=== PATIENT | male | born 1960 | race Caucasian/White ===

== ENCOUNTER → 2018-02-13 12:47 | Outpatient (REF) | payer MEDICAID, SELFPAY ==
[2018-02-13 19:01] LABS: Anion Gap 11.4 mmol/L (3-11); BUN 12 mg/dL (7-18); CO2 26.6 mmol/L (21.0-32.0); CREATININE 0.91 mg/dL (0.70-1.30); Chloride 100 mmol/L (98-107); Glucose 104 mg/dL (70-100); Potassium 4.9 mmol/L (3.5-5.1); Sodium 138 mmol/L (136-145)
== END ==
LOC: NCHCN 12:47
PROVIDERS: PCP Family Medicine; Visit Provider Family Medicine
DX: I10 Essential (primary) hypertension (principal)
CPT/HCPCS: 80048

== ENCOUNTER 2018-03-13 08:52 | Day surgery (SDC) | payer MEDICAID, SELFPAY ==
--- NOTE | 2018-03-12 14:51 | POEE_ITS ---
History of Present Illness Chief Complaint: Progressive decreased vision, left eye Narrative: The patient is a 57-year-old gentleman who suffered a macula off retinal detachment in 2017. He underwent retinal detachment repair with vitrectomy and scleral buckle. He has now developed a dense mature nuclear cataract of the left eye with posterior subcapsular cataract as well. Best corrected vision in the left eye measures 20/200 in the presence of a dense mature nuclear and posterior subcapsular cataract with poor red reflex and poorly dilating pupil. The option of cataract surgery was offered to the patient and he wished to proceed, understanding that postoperative visual acuity will be limited by the presence of his pre-existing retinal disease. NOTE: The Chief Complaint, HPI, Past Medical History, Past Surgical History, Family History, Social History, Medications, and complete Ophthalmic Exam with detailed Assessment and Plan have already been documented in the patient's outpatient ophthalmic record and/or in the Primary Care Provider's pre-op history and physical, and are not covered again in detail here. 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) Abdominal pain, left upper quadrant Allergic rhinitis Gout History of depression Hypertension Hypertriglyceridemia Lactose intolerance Obesity Tubular adenoma of colon Social History Smoking/Tobacco Use Status: Never Surgical History Colonoscopy - MAC (05/30/17) Meds Home Medications Medication Instructions Recorded Confirmed Type omeprazole 20 mg PO DAILY PRN tab-cap 07/08/14 03/10/18 History ibuprofen 600 mg PO DIRECTED PRN 03/24/15 03/10/18 History amlodipine 5 mg PO DAILY tab-cap 05/02/17 03/09/18 History albuterol sulfate 2 puff INHALATION Q4H PRN PRN 03/09/18 03/09/18 History indomethacin 50 mg PO TID PRN 03/09/18 03/09/18 History Allergies Allergy/AdvReac Type Severity Reaction Status Date / Time lisinopril AdvReac Mild cough Unverified 05/30/17 07:20 Exam OCULAR EXAM:: Visual acuity at distance: Best corrected vision is 20/20 right eye, 20/200 left eye. Pupils: Pupils equal, round, and reactive without afferent pupillary defect IOP: 15 OD, 14 OS Extraocular Motility: Normal Pertinent Slit Lamp Findings: Significant for 2+ nuclear cataract OD. In the left eye, pupil dilates only to 4 mm. Dense 3++ yellow-brown brunescent cataract with 1+ posterior subcapsular cataract. Red reflex is poor. Dilated Funduscopic Examination: Disc cupping is 0.3 in the right eye with normal vessels, macula, peripheral retina and vitreous. There is very poor view of the fundus in the left eye secondary to dense cataract. BRIGHTNESS ACUITY TESTING (BAT):: Off left eye 20/200 Low: 20/200 Medium: 20/200 High: 20/200 Assessment and Plan (1) Pupillary miosis: Current visit: No Status: Acute Assessment: Poorly dilating pupil, left eye, likely secondary to previous surgery Plan: Pupillary dilation and iris stabilization with malyugin ring (2) Posterior subcapsular age-related cataract of left eye: Current visit: No Status: Acute Assessment: Visually significant cataract, left eye. Plan: Cataract extraction with intraocular lens implantation, left eye (3) Nuclear sclerotic cataract of left eye: Current visit: No Status: Acute Assessment: Visually significant cataract, left eye. Plan: Cataract extraction with intraocular lens implantation, left eye (4) Mature cataract: Current visit: No Status: Acute Assessment: Visually significant cataract, left eye. Plan: Cataract extraction with intraocular lens implantation, left eye (5) History of detached retina repair: Current visit: No Status: Acute Note: NOTE:: The details of the planned surgery, including the risks, indications, limitations,expectations,outcome and possible complications were explained to the patient. The patient understands the complications including, but not limited to: infection, hemorrhage, posterior dislocation of the lens or nuclear fragments which may require the intervention of a vitreoretinal surgeon, possible loss of the eye, or from anesthetic complications. The patient has been made aware of the option of not having surgery, that vision following surgery may not be equal to that prior to surgery, and that the planned surgery may not achieve the intended results. Following this discussion, which the patient appeared to understand, the patient wishes to proceed with cataract surgery with lens implantation of the affected eye to improve and maximize vision.
[2018-03-13 10:01] VITALS: BP 123/88; PULSE 106; RESP 18; TEMP 37.3; O2SAT 94
[2018-03-13] MEDS: Lidocaine 2% Jelly 6 ML SYR (12:02)
[2018-03-13] MEDS: Lidocaine 1% Pres-Free 5 ML VIAL (12:12)
[2018-03-13] MEDS: Balanced Salt Soln.-PLUS 500 ML BAG ×2 (12:12→12:50)
[2018-03-13] MEDS: Trypan Blue 0.06% 0.5 ML SYR (12:12)
[2018-03-13] MEDS: Povidone-Iodine Ophth 30 ML BTL (13:14)
--- NOTE | 2018-03-13 13:19 | W.PM.DSUDISC ---
Discharge Plan Discharge Details Reason For Visit: CATARACT OS Attending Provider: Junior Hubbard Primary Care Provider: Sadiq Wilcox Home Meds and New Rx's Prescriptions: No Action omeprazole 20 MG capsule,delayed release(DR/EC) 20 mg PO DAILY PRNRF: 0 amlodipine 5 MG tablet 5 mg PO DAILY RF: 0 ibuprofen 200 MG capsule 600 mg PO DIRECTED PRNRF: 0 indomethacin 50 mg Capsule 50 mg PO TID PRNRF: 0 albuterol sulfate 90 mcg/actuation Hfa Aerosol Inhaler 2 puff INHALATION Q4H PRN PRNRF: 0 Discharge Instructions Stand Alone Forms: Post-op Topical Cataract, Silvio Mckeon (DSU) DS: Diagnosis Discharge Diagnosis (1) Pupillary miosis: Status: Chronic (2) Posterior subcapsular age-related cataract of left eye: Status: Resolved (3) Nuclear sclerotic cataract of left eye: Status: Resolved (4) Mature cataract: Status: Resolved (5) History of detached retina repair: Status: Chronic
--- NOTE | 2018-03-13 13:21 | ROE_ITS ---
Date of service: 03/13/18 Time of Service: 13:20 Operative Note Date of procedure: 03/13/18 Pre-op diagnosis: Mature cataract with poor red reflex and poorly dilating pupil , left eye Post-op diagnosis: same Procedure: 1. Cataract extraction by phacoemulisification with intraocular lens implantation, left eye, 2. Pupillary dilation and iris stabilization with 7.0 mm Malyugin ring 3. Capsular staining with Vision Blue Surgeon: Junior Hubbard Anesthesia: MAC and local (sub-tenon's anesthetic infiltration) Estimated blood loss (mL): 0 Pathology: none sent Complications: None Patient was transported to: same day Patient's condition: stable Implants: [employer] Tecnis [id number] Indications: Rapidly progressive, dense nuclear and posterior subcapsular cataract in left eye after retinal detachment repair by vitrectomy and scleral buckle Findings: Dense brunescent nuclear cataract with poor red reflex. Poorly dilating pupil. Hyper deep anterior chamber with loose zonules and thin capsule. Densely adherent posterior subcapsular plaque. Procedure Description: CATARACT SURGERY OPERATIVE REPORT PREOPERATIVE DIAGNOSIS: 1. Dense nuclear/posterior subcapsular cataract, left eye 2. Poorly dilating pupil, left eye 3. Poor red reflex, left eye 4. s/p scleral buckle/vitrectomy for macula off retinal detachment , left eye POSTOPERATIVE DIAGNOSIS: Same OPERATION: 1. Cataract extraction using phacoemulsification with posterior chamber intraocular lens implant, left eye. 2. Pupillary dilation and iris stabilization using Malyugin Ring 3. Capsular staining with Vision Blue IOL: IOL Weatherization Administrator/Model: Martin [employer] Martin / CLAUDIA Tecnis [id number] IOL Power: +16.0 diopters IOL Serial Number: [id number] Optic Diameter: 6.0 mm Haptic/Overall Diameter: 13.0 mm PHACO INFO: Antwon Centurion Vision System with OZil and Active Fluidics Cumulative Dispersed Energy (CDE): 35.02 seconds SURGEON: Junior Hubbard MD, EZEKIEL ANESTHESIA: Monitored Anesthesia Care (MAC), with local sub-tenon's anesthetic infiltration COMPLICATIONS: None SPECIMENS: None INDICATIONS FOR PROCEDURE: The patient is a 57-year-old gentleman who in 2017 suffered a macula off retinal detachment in the left eye. He underwent retinal detachment repair with scleral buckle and vitrectomy. He has developed a dense nuclear and posterior subcapsular cataract in the left eye. The option of cataract surgery was offered to the patient, understanding that postoperative visual acuity will be limited by the presence of his pre-existing retinal pathology. PROCEDURE: The correct surgical eye was identified and marked as the left eye and the pupil was dilated in the preoperative area using mydriatics, cycloplegics, and NSAIDS (except in aspirin allergic patients). The dilated pupil size was 4.5 mm. Oral sedation was administered in the form of an Imprimis MKO Melt (midazolam 3mg/ketamine 25mg/ondansetron 2mg). The patient was brought to the operating room where cardiopulmonary monitoring was instituted and surgical time-out was performed, confirming the correct operative eye and IOL power. Topical anesthesia was administered and ophthalmic povidone-iodine 5% was instilled into the conjunctival fornices. Lidocaine gel was applied to the cornea and the thiago-ocular area was prepped with Betadine 10% solution and draped in the usual sterile fashion for intraocular surgery. Steri-strips were used to cover the lashes and lid margins and an adhesive eye drape was placed. Care was taken to isolate the lashes and lid margins under the Steri-strips and adhesive eye drape. A lid speculum was placed between the lids of the operative eye and the Kelin-Keanu operating microscope was maneuvered into position. Talib scissors were then used to make a conjunctival buttonhole approximately 6mm posterior to the limbus in the inferonasal quadrant. Blunt dissection was carried out to expose bare sclera, and a blunt-tipped sub-tenon? s anesthesia cannula was introduced and passed posteriorly along the globe where non-preserved plain lidocaine was injected into posterior sub-Tenon?s space. There was no interference from the scleral buckle. A sideport knife was used to make a paracentesis port at the 12:00 position and then air was injected into the anterior chamber, followed by Vision Blue, which was painted over the lens capsule and then irrigated out with balanced salt solution. The anterior chamber was then filled with Healon GV. Shashi scissors were used to make a conjunctival peritomy at the 2 o'clock position and hemostasis was obtained using bipolar cautery. A 2.4mm keratome knife was used to create a half-thickness groove 1 mm posterior to the limbus and then to construct a three -plane sclerocorneal tunnel extending 1.5mm into clear cornea at the 2:00 position, with some difficulty due to low scleral rigidity. A 7.0 mm Malyugin Ring was then inserted into the pupillary space and engaged with the Kuglen hook. A flap was raised on the anterior capsule and capsulorhexis forceps were used to complete a continuous curvilinear capsulorhexis of 5.0. The capsule was noted to be extremely thin with loose zonules and the anterior chamber was very deep.. Balanced salt solution was then used to perform cortical cleaving hydrodissection and nuclear hydrodelineation until the lens could be freely rotated within the capsular bag. The lens nucleus was then disassembled and removed within the capsular bag and iris plane using phacoemulsification. Nucleus splitters were used to help and cracking the dense nucleus, and frequent additional viscoelastic was used to protect the corneal endothelium. Residual cortical material was removed using the 45-degree angled silicone I/A tip with 0.3mm port. The posterior capsule was carefully polished to remove as much residual lens epithelial cells as safely possible. There was a significant amount of densely adherent posterior capsular plaque which could not be safely removed despite extensive polishing and vacuuming. The capsular bag was then inflated and the anterior chamber deepened with viscoelastic. The lens implant described above was inserted into the capsular bag using the CLAUDIA [place] Injector. A Kuglen hook was used to dial the IOL into position. The Malyugin Ring was removed in the reverse order of its insertion. Residual viscoelastic was then removed first from posterior to the IOL, then from the anterior chamber using the I/A handpiece. The lens implant was noted to center nicely within the capsular bag. The incisions were stromally hydrated , and the anterior chamber was reformed using BSS. Then 0.4cc of moxifloxacin 1.5mg/ml were injected into the capsular bag and anterior chamber. The incisions were checked with a Weck spear and found to be secure. The conjunctiva was closed over the scleral tunnel incision using cautery forceps. Several drops of ophthalmic povidone-iodine 5% were then applied to the eye followed by two drops of Imprimis combination moxifloxacin/dexamethasone solution. The drapes were removed and a clear plastic protective eye shield was placed over the eye. The patient was then returned to [facility] in stable condition.
[2018-03-13 13:38] VITALS: BP 136/97; PULSE 109; RESP 18; TEMP 37.4; O2SAT 95
== END 2018-03-13 14:00 | disposition home or self-care (01) ==
LOC: SUR 08:52
PROVIDERS: PCP Family Medicine; Visit Provider Ophthalmology
PROC: (CPT 66982; principal; 2018-03-13 13:30)
DX: H25.12 Age-related nuclear cataract, left eye (principal); H25.042 Posterior subcapsular polar age-related cataract, left eye; H35.89 Other specified retinal disorders; H57.09 Other anomalies of pupillary function; H27.8 Other specified disorders of lens; Z98.890 Other specified postprocedural states; I10 Essential (primary) hypertension; K21.9 Gastro-esophageal reflux disease without esophagitis
CPT/HCPCS: 66982; V2632

== ENCOUNTER 2018-11-02 08:02 | Emergency (ER) | payer MEDICAID, SELFPAY ==
[2018-11-02 08:12] VITALS: BP 166/102; PULSE 99; RESP 20; TEMP 36.7; O2SAT 96
--- NOTE | 2018-11-02 08:36 | W.ED.GENAD ---
Discharge Plan Disposition Patient Disposition: HOME Condition: Stable Discharge Details Chief Complaint: Orthopedic Clinical Impression: Left knee sprain, Left knee pain Primary Care Provider: Sadiq Wilcox ED Provider: Anne-Marie Hunt Home Meds and New Rx's Prescriptions: Continued omeprazole 20 MG capsule,delayed release(DR/EC) 20 mg PO DAILY PRNRF: 0 amlodipine 5 MG tablet 5 mg PO DAILY RF: 0 ibuprofen 200 MG capsule 600 mg PO DIRECTED PRNRF: 0 indomethacin 50 mg Capsule 50 mg PO TID PRNRF: 0 albuterol sulfate 90 mcg/actuation Hfa Aerosol Inhaler 2 puff INHALATION Q4H PRN PRNRF: 0 Discharge Instructions Instructions: Knee Sprain (ED), Knee Pain (ED) Additional Instructions: Rest, ice, elevate left knee as much as possible. Alternate Tylenol and Motrin as needed and directed for pain. Wear an Deejay wrap as much as possible to help with compression. Follow-up with your primary care doctor in 1 week for reevaluation and for referral to orthopedics if your symptoms do not improve or worsen. Return to the emergency department with any worsening or new concerning symptoms. Referrals: Ozzy Montoya MD [ [facility] STAFF PHYSICIAN] - Discharge Data Discharge Physician: Anne-Marie Hunt Medical Decision Making 58-year-old male who presents with left anterior medial knee pain for the past 2 weeks after carrying heavy bags upstairs. Afebrile. Patient appears nontoxic. No signs of infection noted to knee. Pain with valgus stress with very minimal edema anterior medial left knee. No other ligamentous instability. Neurovascular intact. No deformity. No calf tenderness. Discussed with patient that the differential diagnosis includes knee sprain, strain, arthritis, effusion. As there is no direct blunt trauma or fall, doubt fracture. Patient was offered x-ray but declines. Will place an Deejay wrap. Patient declines crutches. He is instructed to rest, ice, elevate and wear Deejay wrap to help with compression. He states he has a wheelchair at home. He is also encouraged to obtain a cane from a medical supply store which may help with ambulation and rest. He is instructed to follow-up with his primary care doctor for reevaluation and for referral to orthopedics if symptoms do not improve or worsen. HPI General Mode of arrival: wheelchair. Date/Time Provider Initiated Documentation: 11/02/18 08:20. Limitations to Documentation: no limitations. Information obtained by: patient. HPI Narrative: Patient is a 58-year-old male who presents to the ED with a complaint of left knee pain for the past 2 weeks. 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 Patient states the pain feels like a dull ache and pressure when he is laying down and with prolonged standing. He has been applying ice, heat and taking ibuprofen for pain. He denies any calf pain or fever. Related Data Home Medications Medication Instructions Recorded Confirmed omeprazole 20 mg PO DAILY PRN tab-cap 07/08/14 11/02/18 ibuprofen 600 mg PO DIRECTED PRN 03/24/15 11/02/18 amlodipine 5 mg PO DAILY tab-cap 05/02/17 11/02/18 albuterol sulfate 2 puff INHALATION Q4H PRN PRN 03/09/18 11/02/18 indomethacin 50 mg PO TID PRN 03/09/18 11/02/18 Allergies Allergy/AdvReac Type Severity Reaction Status Date / Time lisinopril AdvReac Mild cough Verified 11/02/18 08:15 General Stated Complaint: Orthopedic MAX: 3 Review of Systems Review of Systems All systems reviewed & are unremarkable except as noted in HPI and below Constitutional Reports as per HPI, Denies chills and Denies fever(s) Eyes Denies blurry vision ENT Denies dizziness, Denies sore throat and Denies throat swelling Cardiovascular Denies chest pain and Denies dyspnea Respiratory Denies cough and Denies dyspnea Gastrointestinal Denies abdominal pain, Denies diarrhea and Denies vomiting Genitourinary Denies hematuria and Denies dysuria Musculoskeletal Denies back pain and Denies numbness Integumentary/Breasts Denies lesions and Denies rash Neurologic Denies dizziness, Denies focal weakness and Denies numbness Allergic/Immunologic Denies throat swelling FORMERLY [facility], 1928–1983 Medical History 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) Abdominal pain, left upper quadrant Allergic rhinitis Gout History of depression Hypertension Hypertriglyceridemia Lactose intolerance Obesity Tubular adenoma of colon Surgical History Colonoscopy - MAC (05/30/17) Social History Smoking/Tobacco Use Status: Never Alcohol Intake: current Alcohol Intake frequency: a few times a week Drug use: Never Substance use type: does not use Do you feel safe at home: Yes Do you feel safe in your relationship?: Yes Exam Const General: cooperative, healthy appearing and no acute distress HENMT Head: normal to inspection Mouth: oral mucosae normal Eyes General: appearance normal, both eyes and all related structures Neck Neck: normal visual inspection Resp Effort & Inspection: normal respiratory effort and able to speak in complete sentences Cardio Rate: regular rate Skin General skin exam: no rashes or lesions noted Neuro General: alert, awake and oriented x3 Motor: muscle tone normal throughout Extrem General: no calf tenderness Other: Pain in left anterior medial knee with valgus stress. Negative anterior/posterior drawer test. Negative Tim's test. No pain with varus stress. No ligamentous instability. Very minimal edema noted to left anterior medial knee. No erythema, ecchymosis or open wounds. Left DP/PT pulses intact. Psych Appearance: grossly normal Affect: normal affect Course Vital Signs Temperature 98.1 F 11/02/18 08:12 Pulse 99 H 11/02/18 08:12 Respiratory Rate 20 11/02/18 08:12 Blood Pressure 166/102 H 11/02/18 08:12 Pulse Oximetry 96 11/02/18 08:12 Temperature 98.1 F 11/02/18 08:12 Temperature Source Temporal Artery Scan 11/02/18 08:12 Pulse 99 H 11/02/18 08:12 Respiratory Rate 20 11/02/18 08:12 Respiratory Effort Non-Labored 11/02/18 08:12 Blood Pressure 166/102 H 11/02/18 08:12 Pulse Oximetry 96 11/02/18 08:12 Oxygen Delivery Method Room Air 11/02/18 08:12 Oxygen Flow Rate 0 11/02/18 08:12 Pain Level 6 11/02/18 08:16
== END 2018-11-02 08:46 | disposition home or self-care (01) ==
PROVIDERS: Emergency Provider Physician Assistant; PCP Family Medicine
DX: S83.92XA Sprain of unspecified site of left knee, initial encounter (principal); X50.0XXA Overexertion from strenuous movement or load, initial encounter
CPT/HCPCS: 99282

== ENCOUNTER 2018-11-14 14:42 | Outpatient (CLI) | payer MEDICAID, SELFPAY ==
--- NOTE | 2018-11-14 13:20 | DI.RAD_ITS ---
SYMPTOMS/DIAGNOSIS: LT KNEE PAIN, M25.562 LEFT KNEE: The femoral tibial joint spaces are well maintained. There is mild spurring at the articular aspect of the patella. No joint effusion is seen. IMPRESSION: Mild degenerative changes at the patella.
== END 2018-11-14 15:02 ==
PROVIDERS: PCP Family Medicine; Visit Provider Family Medicine
DX: M25.562 Pain in left knee (principal); M17.12 Unilateral primary osteoarthritis, left knee
CPT/HCPCS: 73562

== ENCOUNTER 2018-11-27 11:56 | Emergency (ER) | payer MEDICAID, SELFPAY ==
[2018-11-27 12:10] VITALS: BP 126/99; PULSE 95; RESP 18; TEMP 36.6; O2SAT 97
[2018-11-27] MEDS: Acetaminophen 325 MG TAB 650 MG PO (13:07)
--- NOTE | 2018-11-27 14:44 | DI.RAD_ITS ---
SYMPTOM/DIAGNOSIS; MEDIAL KNEE PAIN LEFT KNEE: Four views. No acute fracture, dislocation, lytic or sclerotic lesion is seen. Small spurs are seen at the posterior patella. The soft tissues are unremarkable. IMPRESSION: Minimal degenerative changes in the left knee. No acute abnormality.
--- NOTE | 2018-11-27 16:13 | W.ED.GENAD ---
Discharge Plan Disposition Patient Disposition: HOME Condition: Stable Discharge Details Chief Complaint: Orthopedic Clinical Impression: Sprain of medial collateral ligament of left knee Primary Care Provider: Sadiq Wilcox ED Provider: Cristobal Murphy Home Meds and New Rx's Prescriptions: Continued omeprazole 20 MG capsule,delayed release(DR/EC) 20 mg PO PRN PRNRF: 0 amlodipine 5 MG tablet 5 mg PO DAILY RF: 0 albuterol sulfate 90 mcg/actuation Hfa Aerosol Inhaler 2 puff INHALATION Q4H PRN PRNRF: 0 Discharge Instructions Instructions: Knee Sprain (ED), RICE Therapy (ED) Additional Instructions: He may continue to apply ice to your knee and slowly advance activity as tolerated. If need be you may remove the knee brace during sleep but during any activity or weightbearing you should keep this in place. Please keep your appointment with your primary care provider as arranged and feel free to follow-up with orthopedic office for reassessment and further evaluation. Return to the emergency department for any fever, redness to the knee, significant swelling, or inability to move the knee. Referrals: Ozzy Montoya MD [ [facility] STAFF PHYSICIAN] - (Given that you have been having symptoms for 3 weeks you may call the orthopedic office for arrangement of follow-up appointment with specialist if need) Sadiq Wilcox [Primary Care Provider] - 12/04/18 (Keep your appointment as scheduled) Discharge Data Discharge Date/Time-TO BE ENTERED AT DEPARTURE: 11/27/18 16:33 Medical Decision Making Patient coming into the emergency department via EMS for continued left knee pain. Patient states that he injured his knee 3 weeks ago when going up stairs and was seen in the emergency department and informed he had a knee sprain. He was encouraged to use Deejay wraps which she is intermittently done but due to the pressure on the back of the leg from the Deejay wrap patient has remove them. He states that once he rests his knee does fine but then as soon as he gets up and resumes activity it begins to hurt again. Patient is very aware that his weight is a probable factor in this but states that he cannot continue to have knee discomfort in this manner. Patient denies any new or worsening symptoms but more states concern over continued symptoms. Physical exam shows tenderness with valgus stress testing, no laxity, significant tenderness to palpation of the medial joint line and otherwise diffuse tenderness to the medial soft tissue of the knee. Patient has no tibial tenderness, no femur tenderness, patient can slowly flex and extend knee. Knee is not reddened or erythematous, not hot, and given movement of the joint I doubt any infectious nature to this but more suspect medial ligament sprain/tear and given body habitus has been slow to heal. Plan to do radiological imaging to rule out any acute changes. Pending results patient given acetaminophen Based upon my review of radiological imaging I see no acute changes or no emergent findings. Patient was placed in a extra-large hinged knee brace which barely fits him but after this was placed patient was able to walk through the emergency department greater than 10 steps and states significant improvement of stability and pain while using this. Patient was able to ambulate without any assistive devices and had stable gait.. Patient does state that he has a follow-up appoint with his primary care provider in approximately 1 week which I feel is appropriate but patient was also given phone number for follow-up with orthopedic office given concern for medial ligament injury. Also of consideration is possible meniscus injury. After discussion of diagnosis and plan of care patient has no further needs, questions, or concerns and states clear understanding to return to the emergency department for any worsening symptoms. HPI General Mode of arrival: EMS. Date/Time Provider Initiated Documentation: 11/27/18 12:19. Limitations to Documentation: no limitations. Information obtained by: patient and RN notes reviewed. History of Present Illness 58 year old M presents to the emergency department with the chief complaint of left knee pain, described as severe and similar to prior episodes, with intensity rated at 8. Quality is described as aching and sharp, and is localized to the left and lower extremity. Patient started experiencing this week(s) (3) and it has been constant and intermittent. Rest improves symptom(s), Movement worsens symptoms . Patient notes no other symptoms.. Related Data Home Medications Medication Instructions Recorded Confirmed omeprazole 20 mg PO PRN PRN tab-cap 07/08/14 11/02/18 amlodipine 5 mg PO DAILY tab-cap 05/02/17 11/27/18 albuterol sulfate 2 puff INHALATION Q4H PRN PRN 03/09/18 11/02/18 Allergies Allergy/AdvReac Type Severity Reaction Status Date / Time lisinopril AdvReac Mild cough Verified 11/27/18 12:13 General Stated Complaint: Orthopedic MAX: 4 Review of Systems Cardiovascular Denies syncope Musculoskeletal Reports as per HPI, Denies numbness and Denies tingling Integumentary/Breasts Denies rash, Denies sores and Denies wounds Neurologic Denies syncope, Denies numbness and Denies tingling [facility] Medical History 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) Abdominal pain, left upper quadrant Allergic rhinitis Gout History of depression Hypertension Hypertriglyceridemia Lactose intolerance Obesity Tubular adenoma of colon Surgical History Colonoscopy - MAC (05/30/17) Social History Smoking/Tobacco Use Status: Never Alcohol Intake: current Alcohol Intake frequency: a few times a week Drug use: Never Substance use type: does not use Do you feel safe at home: Yes Do you feel safe in your relationship?: Yes Exam Const General: cooperative and no acute distress Orientation: alert, awake and oriented x3 Resp Effort & Inspection: normal respiratory effort and able to speak in complete sentences Cardio Rate: regular rate Rhythm: regular rhythm Extrem Left lower extremity: hip/thigh Details: normal to inspection and normal ROM; no tenderness, knee Details: tenderness Location: of the medial joint line; not of the tibial tuberosity, not of the popliteal fossa and not of the pre-patellar area, abnormal ROM Details: pain with active ROM Details: with extension and with flexion, knee ligament exam normal Details: anterior drawer test normal, posterior drawer test normal and varus stress test normal and knee ligament exam abnormal Details: valgus stress test Details: pain noted; no ecchymosis, no crepitus and no deformity, lower leg Details: no tenderness and ankle Details: normal to inspection, no edema and normal ROM; no tenderness Course Vital Signs Temperature 36.6 C 11/27/18 12:10 Pulse 95 H 11/27/18 12:10 Respiratory Rate 18 11/27/18 12:10 Blood Pressure 126/99 H 11/27/18 12:10 Pulse Oximetry 97 11/27/18 12:10 Temperature 36.6 C 11/27/18 12:10 Temperature Source Temporal Artery Scan 11/27/18 12:10 Pulse 95 H 11/27/18 12:10 Respiratory Rate 18 11/27/18 12:10 Respiratory Effort 11/27/18 12:18 Blood Pressure 126/99 H 11/27/18 12:10 Pulse Oximetry 97 11/27/18 12:10 Oxygen Delivery Method Room Air 11/27/18 12:10 Oxygen Flow Rate 0 11/27/18 12:10 Pain Level 8 11/27/18 13:15
--- NOTE | 2018-11-27 16:40 | DI.VRAD_ITS ---
EXAM: XR Left Knee EXAM DATE/TIME: 11/27/2018 2:45 PM CLINICAL HISTORY: 58 years old, male; Left; Patient HX: Medial knee pain; Additional info: Weight-bearing views TECHNIQUE: Imaging protocol: XR Left knee. Views: 3 views. COMPARISON: CR XR knee LT 3V AP,lat,diego 11/14/2018 1:13 PM FINDINGS: Bones/joints: The joint spaces are stable. There is no evidence of acute fracture. Minimal osteophyte formation in the superior pole of the patella Soft tissues: Normal. IMPRESSION: Minimal degenerative changes Dictated and Authenticated by: Augie James MD. Ordering:VICTOR MANUEL Jain MD
== END 2018-11-27 16:33 | disposition home or self-care (01) ==
PROVIDERS: Emergency Provider Nurse Practitioner Family; PCP Family Medicine
DX: S83.412A Sprain of medial collateral ligament of left knee, initial encounter (principal); X50.9XXA Other and unspecified overexertion or strenuous movements or postures, initial encounter
CPT/HCPCS: 29505; 73562; 99283; 99282; L3650

== ENCOUNTER 2018-12-06 12:56 | Outpatient (REF) | payer MEDICAID, SELFPAY ==
[2018-12-06 19:45] LABS: Hemoglobin A1C 6.8 % (4.5-6.2)
== END 2018-12-06 13:16 ==
LOC: NCHCN 12:56
PROVIDERS: PCP Family Medicine; Visit Provider Family Medicine
DX: R73.9 Hyperglycemia, unspecified (principal)
CPT/HCPCS: 83036

== ENCOUNTER 2019-09-17 10:25 | Outpatient (REF) | payer MEDICAID, SELFPAY ==
[2019-09-17 19:05] LABS: Anion Gap 9.6 mmol/L (3-11); BUN 23 mg/dL (7-18); CO2 26.4 mmol/L (21.0-32.0); CREATININE 0.97 mg/dL (0.70-1.30); Calcium 8.8 mg/dL (8.5-10.1); Chloride 104 mmol/L (98-107); Glucose 117 mg/dL (74-106); Sodium 140 mmol/L (136-145)
== END 2019-09-17 10:45 ==
LOC: NCHCN 10:25
PROVIDERS: PCP Family Medicine; Visit Provider Family Medicine
DX: E11.9 Type 2 diabetes mellitus without complications (principal)
CPT/HCPCS: 80048

== ENCOUNTER 2020-09-25 11:20 | Outpatient (REF) | payer MEDICAID, SELFPAY ==
[2020-09-25 18:34] LABS: Anion Gap 13.3 mmol/L (3-11); BUN 15 mg/dL (7-18); CO2 25.7 mmol/L (21.0-32.0); Calcium 9.9 mg/dL (8.5-10.1); Chloride 99 mmol/L (98-107); Glucose 146 mg/dL (74-106); Potassium 4.9 mmol/L (3.5-5.1); Sodium 138 mmol/L (136-145)
[2020-09-25 18:38] LABS: Hemoglobin A1C 7.4 % (<5.7)
== END 2020-09-25 11:21 | disposition home or self-care (01) ==
LOC: NCHCN 11:20
PROVIDERS: PCP Family Medicine; Visit Provider Family Medicine
DX: E11.9 Type 2 diabetes mellitus without complications (principal); I10 Essential (primary) hypertension
CPT/HCPCS: 80048; 83036

== ENCOUNTER 2021-07-21 20:01 | Outpatient (REF) | payer MEDICAID, SELFPAY ==
[2021-07-21 17:22] LABS: ALT 30 U/L (16-63); AST 16 U/L (15-37); Albumin 4.1 g/dL (3.4-5.0); Alkaline Phosphatase 74 U/L (46-116); Anion Gap 12.5 mmol/L (3-11); BUN 22 mg/dL (7-18); Bilirubin, Total 0.3 mg/dL (0.2-1.0); CO2 23.5 mmol/L (21.0-32.0); CREATININE 1.1 mg/dL (0.70-1.30); Calcium 9.2 mg/dL (8.5-10.1); Chloride 102 mmol/L (98-107); Glucose 110 mg/dL (74-106); Magnesium 1.8 mg/dL (1.8-2.4); Potassium 4.7 mmol/L (3.5-5.1); Sodium 138 mmol/L (136-145); Total Protein 7.7 g/dL (6.4-8.2); Vitamin B12 346 pg/mL (193-986)
[2021-07-22 10:21] LABS: Hepatitis C Ab w Rflx HCV PCR Negative (Negative)
== END 2021-07-21 20:02 | disposition home or self-care (01) ==
LOC: LBN 20:01
PROVIDERS: PCP Family Medicine; Visit Provider Family Medicine
DX: R20.9 Unspecified disturbances of skin sensation (principal); M10.9 Gout, unspecified; E11.9 Type 2 diabetes mellitus without complications; Z11.59 Encounter for screening for other viral diseases
CPT/HCPCS: 80053; 86803; 82607; 83735; 84550

== ENCOUNTER → 2022-01-13 02:14 | Outpatient (CLI) | payer MEDICAID, SELFPAY ==
--- NOTE | 2022-01-13 07:15 | DI.MRI_ITS ---
Exam(s) MR CERVICAL SPINE WO EXAM: MR CERVICAL SPINE WO CLINICAL HISTORY: burning paraesthesias of head, neck, and arms, Babinski reflex,R29.2,R20.2 TECHNIQUE: Multiplanar multisequence MRI of the cervical spine was performed without intravenous con trast. COMPARISON: No exams were available for comparison FINDINGS: CERVICOMEDULLARY JUNCTION: Intact with no evidence of cerebellar tonsillar ectopia. No obvious abnor mality of the odontoid process. No evidence of Chiari 1 malformation. CERVICAL SPINAL CORD: There is no abnormal signal in the cervical spinal cord and no evidence of foca l cord atrophy nor focal cord swelling. OSSEOUS:There are no cervical fractures evident. No significant osseous lesions in the cervical vert ebrae. Cervical curvature is normal. INDIVIDUAL LEVELS: C2-3: No disc herniation nor central canal stenosis. No foraminal stenosis. No facet arthropathy. C3-4: No disc herniation nor central canal stenosis.No facet arthropathy. No foraminal stenosis. C4-5: No disc herniation nor central canal stenosis.No facet arthropathy. No foraminal stenosis C5-6: Normal disc height. Mild posterior annular bulging. Small central subligamentous disc bulge. This mildly effaces the thecal sac but not the spinal cord at this level and there is no abnormal si gnal in the cord at this level nor elsewhere in the cervical spine. Mild degenerative changes in the facet joints. No prominent Luschka joint osteophytes. No prominent foraminal stenosis. C6-7: Normal disc height and signal. Mild central subligamentous disc bulge. No significant central canal stenosis. Mild degenerative change in the facet joints. No prominent foraminal stenosis. C7-T1: No disc herniation nor central canal stenosis. No facet arthropathy.No foraminal stenosis. IMPRESSION: 1. Mild disc findings at C5-6 and C6-7 levels, as described above. 2. There are no large disc herniations nor prominent central canal stenosis. There is no foraminal s tenosis. 3. Is no prominent facet arthropathy in the cervical spinal canal. No abnormal signal in the cervical cord and no evidence of cervical spinal cord atrophy nor swelling. DATA REPOSITORY:
== END ==
PROVIDERS: PCP Family Medicine; Visit Provider Psychiatry & Neurology Neurology
DX: R20.2 Paresthesia of skin (principal); R29.2 Abnormal reflex; M50.222 Other cervical disc displacement at C5-C6 level; M50.223 Other cervical disc displacement at C6-C7 level
CPT/HCPCS: 72141

== ENCOUNTER 2022-05-31 13:40 | Outpatient (REF) | payer MEDICAID, SELFPAY ==
--- OUTSIDE RECORDS SUMMARY | 2022-05-31 13:42 | XMS_ITS | Encounter Summary ---
:1960 Author Organization [facility] Address [address] [place] [address] Care Team Providers Name Role Phone Pedro Dave MD Primary Care Provider Encounter Details Date Type Department Care Team Description 08/06/2011 Results Only [facility]- [facility] Germaine Coto, DO [phone] [facility] [place], [place] [id number] (Wo rk) Social History Tobacco Use Types Packs/Day Years Used Date Smoking Tobacco: Never Assessed Sex Assigned at Date Recorded Not on file documented as of this encounter Plan of Treatment Not on filedocumented as of this encounter Procedures Procedure Name Priority Date/Time Associated Diagnosis Comme [facility] SURGICAL PATHOLOGY Routine 08/06/2011 0:00 EST Re sults for this procedure are i n the results section. documented in this encounter Results SURGICAL PATHOLOGY (08/06/2011 0:00 EST) Component Value Ref Test Analysis Performed At [facility] Method Time Signature Pathology SURGICAL PATHOLOGY REPORT [facility] Report: Reports generated via electronic interface contain domi martinez data; ALBINO MOORE however they are lacking the format of the original report. Caution should be taken when reading/interpreting unformatte d reports. Name: ? SHAMAR MARTINEZ ? Accession #: ? [id number] ? : ? 1960 (Age: 50) ??M ? Collect Date: ? 08/06/2011 ? Location: ? [facility] ? Receive Date: ? 08/06/2011 ? Provider: GERMAINE COTO DO Copy to: TANIKA ABRAMS MANAGER RESIDENTIAL ? Final Pathologic Diagnosis: A. ?Colon, transverse, polyp, biopsy: 1. ?Polypoid fragment of co lonic mucosa with a prominent lymphoid aggregate. See comment. B. ?Colon, sigmoid, polyp, biopsy: 1. ?Tubular adenoma. Comment: ? Deeper levels of the transverse colon biopsy (A) urrutia ve been examined. Document reviewed and electronically signed by: DEEDEE MAHONEY MD Report ??Date: 08/09/2011 17:17 By the signature above, the attending physician certifies th at he/she has personally conducted a gross and/or microscopic examin ation of the described specimens and rendered or confirmed the above diagnosis. Specimen(s) Received: A. ?Bx transverse colon B. ? Bx sigmoid colon Clinical History: ? Screening colonoscopy Gross Description: ? Received in formalin labelled Shamar Martinez and bx transverse colon are two schneider-white tissue fragmen ts which measure 0.2 x 0.2 x 0.2 cm and 0.2 x 0.2 x 0.2 cm. ??The specimen is entirely submitted as (A). Received in formalin labelled Shamar Martinez and bx sigmoid colon is one irregular schneider-white tissue fragment measuring 0.6 x 0.2 x 0.2 cm, submitted entirely as (B). ??(Dr. Jessica)/[facility] End of Report Specimen (Source) Anatomical Collection Method Collection Time Re ceived Time Location / / Volume Laterality 08/06/2011 08/06/2011 16:3 6 EST Germaine Coto DO PATHOLOGY ORDERABLES Performing Organization Address City/State/ZIP Code Phon e Number [facility] [address] [place] [address] SERVICES [facility] [address] [place] [address] documented in this encounter Visit Diagnoses Not on filedocumented in this encounter Care Teams Jd Edwards Relationship Specialty Start Date End Date Pedro Dave MD PCP - General 10/26/[address] [place] [address] documented as of this encounter
--- OUTSIDE RECORDS SUMMARY | 2022-05-31 13:42 | XMS_ITS | Encounter Summary ---
:1960 Author Organization [facility] Address [address] [place] [address] Care Team Providers Name Role Phone Cornelius Wilcox MD Primary Care Provider Encounter Details Date Type Department Care Team Description 05/30/2017 Results Only [facility]- Nelda Hearn, [address] [place] [address] [address] [place], [place] [phone] (Wo rk) Social History Tobacco Use Types Packs/Day Years Used Date Smoking Tobacco: Never Smokeless Tobacco: Never Sex Assigned at Date Recorded Not on file documented as of this encounter Plan of Treatment Not on filedocumented as of this encounter Procedures Procedure Name Priority Date/Time Associated Diagnosis Comme [facility] SURGICAL PATHOLOGY Routine 05/30/2017 16:10 Resul ts for this EST procedure are i n the results section. documented in this encounter Results SURGICAL PATHOLOGY (05/30/2017 16:10 EST) Component Value Ref Test Analysis Performed At [facility] Method Time Signature Pathology SURGICAL PATHOLOGY REPORT [facility] MEDICAL Report: Reports generated via electronic interface contain origina l data; CENTER however they are lacking the format of the original report. LABORATORY Caution should be taken when reading/interpreting unformat kiara reports. SERVICES Name: ? SHAMAR MARTINEZ ? Accession #: ? [id number] ? : ? 1960 (Age: [age]) ??M ? Collect Date: ? 05/30/2017 ? Location: ? [facility] ? Receive Date: ? 05/30/2017 ? Provider: NELDA GANNON MD Copy to: CORNELIUS WILCOX MD ? Final Pathologic Diagnosis: A. colon, ascending, polyp, biopsy: - Fragments of hyperplastic/inflammatory polyp. - Deeper sections have been examined. B. colon, descending, polyp, BIOPSY: - Fragments of tubular adenoma. Comment: Document reviewed and electronically signed by: MARIA ALEJANDRA HIRSCH MD Report ??Date: 06/01/2017 11:18 By the signature above, the attending physician certifies th at he/she has personally conducted a gross and/or microscopic examin ation of the described specimens and rendered or confirmed the above diagnosis. Specimen(s) Received: A. ??Ascending colon polyp B. ??Descending colon polyp Clinical History: H/O colon polyps Gross Description: A. ?Received in formalin labelled with proper patie nt identification (initials T, R) and ascending colon polyp are two schneider irre gular tissues averaging 0.1 x 0.1 x 0.1 cm. Entirely submitted in A1. B. ?Received in formalin labelled with proper patie nt identification (initials T, R) and descending colon polyp is a schneider irregular tissue, 0.3 x 0.2 x 0.1 cm. Entirely submitted in B1. MOO [place] ([facility]) 05/30/2017 5:12 PM End of Report Specimen Anatomical Collection Method Collection Time Receive d Time (Source) Location / / Volume Laterality 05/30/2017 16:10 05/30/2017 EST 16:10 EST Nelda Gannon MD PATHOLOGY ORDERABLES Performing Organization Address City/State/ZIP Code Phon e Number [facility] [address] [place] [address] SERVICES documented in this encounter Visit Diagnoses Not on filedocumented in this encounter Care Teams Truss Designer Relationship Specialty Start Date End Date Cornelius Wilcox MD PCP - General 02/18/17 documented as of this encounter
--- OUTSIDE RECORDS SUMMARY | 2022-05-31 13:42 | XMS_ITS | Encounter Summary ---
:1960 Author Organization [facility] Address [address] [place] [address] Care Team Providers Name Role Phone Sadiq Wilcox MD Primary Care Provider Encounter Details Date Type Department Care Team Description 02/24/2017 Pre-Procedure [facility] Tee Rios Se retinal Orders Encounter Ophthalmology - [address] MD detachment, left [address] [place] (Primary Dx) [address] [place], [place] [id number] [place] [address] [place], [address] [place] [address] Social History Tobacco Use Types Packs/Day Years Used Date Smoking Tobacco: Never Sex Assigned at Date Recorded Not on file documented as of this encounter Plan of Treatment Not on filedocumented as of this encounter Visit Diagnoses Diagnosis Serous retinal detachment, left - Primar y documented in this encounter Care Teams Radiator Mechanic Relationship Specialty Start Date End Date Sadiq Wilcox MD PCP - General 02/18/17 documented as of this encounter
--- OUTSIDE RECORDS SUMMARY | 2022-05-31 13:42 | XMS_ITS | Encounter Summary ---
:1960 Author Organization [facility] Address [address] [place] [address] Care Team Providers Name Role Phone Sadiq Wilcox MD Primary Care Provider Encounter Details Date Type Department Care Team Description 07/14/2021 Travel Social History Tobacco Use Types Packs/Day Years Used Date Smoking Tobacco: Never Smokeless Tobacco: Never Sex Assigned at Date Recorded Not on file COVID-19 Exposure Response Date Recorded In the last month, have you been in contact with No / Unsure 07/14/2021 10:51 EST someone who was confirmed or suspected to have Coronavirus / COVID-19? documented as of this encounter Functional Status Functional Status Response Date of Assessment Are you deaf or do you have serious difficulty hearing? No 07/14/2021 Because of a physical, mental, or emotional condition, No 12/16/2017 does this person have difficulty doing errands alone such as visiting a doctor's office or shopping? Cognitive Status Response Date of Assessment Because of a physical, mental, or emotional condition, No 12/16/2017 does this person have serious difficulty concentrating, remembering, or making decisions? documented as of this encounter Plan of Treatment Not on filedocumented as of this encounter Visit Diagnoses Not on filedocumented in this encounter Care Teams Electromechanical Technician Relationship Specialty Start Date End Date Sadiq Wilcox MD PCP - General 02/18/17 documented as of this encounter
--- OUTSIDE RECORDS SUMMARY | 2022-05-31 13:42 | XMS_ITS | Encounter Summary ---
:1960 Author Organization [facility] Address [address] [place] [address] Care Team Providers Name Role Phone Sadiq Wilcox MD Primary Care Provider Encounter Details Date Type Department Care Team Description 02/28/2017 [facility] Tee Rios Ser ous retinal Encounter [address] MD detachment, left Services- [facility] [id number] [place], [place] [phone] [place], [address] [place] [address] Social History Tobacco Use Types Packs/Day Years Used Date Smoking Tobacco: Never Sex Assigned at Date Recorded Not on file documented as of this encounter Last Filed Vital Signs Vital Sign Reading Time Taken Comments Blood Pressure 115/73 02/28/2017 1145 EDT Pulse - - Temperature 36.3 ??C (97.3 ??F) 02/28/2017 1200 EDT Respiratory Rate 12 02/28/2017 1145 EDT Oxygen Saturation 99% 02/28/2017 1145 EDT Inhaled Oxygen Concentration - - Weight 158.8 kg (350 lb) 02/22/2017 1022 EDT Height 177.8 cm (5' 10) 02/22/2017 1022 EDT Body Mass Index 50.22 02/22/2017 1022 EDT documented in this encounter Discharge Diagnoses Diagnosis H33.42 Traction detachment of retina, le ft eye-H33.42[ICD-10-CM] H35.22 Other non-diabetic proliferative retinopathy, left eye-H35.22[ICD-10-CM] I10 Essential (primary) hypertension-I10 [ICD-10-CM] E66.01 Morbid (severe) obesity due to ex cess calories-E66.01[ICD-10-CM] Z68.43 Body mass index (BMI) 50-59.9 , a dult-Z68.43[ICD-10-CM] documented in this encounter Discharge Instructions InstructionsTee Rios MD - 02/28/2017 10:51 EDT Please leave the patch on until you see the doctor tomorrow. Please try to keep face down positioning for 45 minutes out of each hour. Sleep with either face down or left side down. documented in this encounter Medications at Time of Discharge Medication Sig Dispensed Refills Start Date End Date amLODIPine (NORVASC) 10 mg Take 5 mg by mouth 0 tabletIndications: daily. hypertension documented as of this encounter Discharge Disposition Disposition Code Departure Means Destination Home or Self Care documented in this encounter Progress Notes Marialuisa Isabel RN - 02/22/2017 1043 EDT Shamar Connell Michelle has been instructed as follows regarding medication administration for the day of the scheduled procedure. Date of Surgery: 02/28/17 Instructions for Taking Medications Day of Surgery Medication Sig Last Dose Hold DOS Take DOS amLODIPine (NORVASC) 10 mg tablet Take 5 mg by mouth daily. Yes documented in this encounter H&P Notes Tee Rios MD - 02/28/2017 0712 EDT The preoperative history and physical which was performed within 30 days of this procedure has been reviewed and the clinically appropriate elements of the physical examination havebeen repeated. There are no changes to the documented history and physical or if so such changes aredocumented below Tee Rios MD 02/28/2017 7:12 Source Note - Tee Rios MD - 02/16/2017 15:00 EDT Chief Complaint Patient presents with ??? Eye Problem mac-off RD left eye. Starting losing vision on 12/23/16. Tried to make appt with eye doctor but couldn't get in. HPI Location: Left eye Pain: 0 - No pain Quality: Blurry Severity: Severe Duration: Weeks Timing: Constant Lasts: Weeks Context: Modifying factors: Associated Signs & Symptoms: Flashes and floaters, but if he doesn't concentrate on them, they go away Visual Fluctuations: None Attestation: The above HPI has been reviewed by the Attending Physician Severe. blurry vision loss in the left eye since the end of December, constant. No improvement. Was diagnosed with a retinal detachment today and referred here for management. Base Eye Exam Visual Acuity (Snellen - Linear) Right Left Dist cc 20/25 -2 20/800 Correction: Glasses Tonometry (Applanation, 16:00) Right Left Pressure 14 14 Pupils APD Right - Left + Neuro/Psych Oriented x3: Yes Mood/Affect: Normal Dilation Both eyes: 1.0% Mydriacyl, 2.5% Phenylephrine @ 16:00 Slit Lamp and Fundus Exam External Exam Right Left External Normal Normal Slit Lamp Exam Right Left Lids/Lashes Normal Normal Conjunctiva/Sclera White and quiet White and quiet Cornea Clear Clear Anterior Chamber Deep and quiet Cell: Occasional Iris Round and reactive Round and reactive Lens Trace Nuclear sclerosis Trace Nuclear sclerosis Vitreous Normal pigment in vitreous Fundus Exam Right Left Disc Tilted disc Normal C/D Ratio 0.1 Macula Normal detached Vessels Normal Periphery Cobblestones star fold at superotemp arcade; HST with rolled edge at 6; retina detached except between 10-11 Please refer to large retinal drawing. IMPRESSION: 1. Retinal detachment, tractional, left 2. 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 Cheney also has untreated hypertension and morbid obesity with a BMI >50. He stopped his bloodpressure meds 6 months ago and has not seen his doctor since. He arrived with an exam note from another crm dynamics developer recommending repair within 7 days. I am recommending scleral-buckle, pars plana vitrectomy membrane peeling, possible gas or oil in theleft eye. We discussed the risks, benefits and alternatives. All questions were answered. He elects to proceed. I did offer him a stat medical evaluation at the [facility] care this evening and then posting as an add-on tomorrow. He is unable to do this because he has no ride and lives 2 hours away. We had a long, detailed conversation with the patient about the situation. I did tell him that thereis absolutely no recommendation that the surgery must be done with 7 days. I explained we typically would want to fix a retinal detachment within 7 days of the INITIAL symptoms of losing the central vision or diagnosis of macula-off status, but once the macula has been off for 2 months, there is no reason to suggest a 7 day window will have any substantial impact on his prognosis at this point. For this reason, I recommended repair, as soon as safely and practically possible. He will seek a medical pre-op evaluation with his doctor tomorrow and we will schedule him soon thereafter. I, Dr. Tee Rios, have performed my own HPI and reviewed the tech's ROS. I have also reviewed the patient's past medical, family, social and surgical history, as well as the patient's medications, allergies, and problem list. I am scribing for Dr. Tee Rios MD while he is personally performing the service. NITA CH (Scribe) documented in this encounter OR Notes OR Surgeon - Tee Rios MD - 02/28/2017 1210 EDT Patient Name: Shamar Martinez Patient Medical Record: [id number] Date of Operation(s)/Procedure(s): 02/28/17 Title of Operation: Pars Plana Vitrectomy, Scleral Buckle, Membrane peel Endolaser, Air-fluid exchange, 14%C3F8, Left Eye Pre-op Diagnosis: 1. Retinal detachment with preretinal tractional membranes and Grade C Proliferative vitreoretinopathy, left eye Post-op Diagnosis: Retinal detachment with preretinal tractional membranes and Grade C Proliferativevitreoretinopathy, left eye Attending Surgeon: Tee Rios MD, MD Prothestic Device/Implant: 1. #40 band 2. #70 sleeve Specimen: None Estimated blood loss: Minimal Anesthesia Type: Monitor Anesthesia Care with Retrobulbar block and General Anesthesia Indications: Shamar Martinez presented for decreased vision in the Right and Left eye. Exam revealed asubtotal retinal detachment with preretinal starfold formation. Risk, benefits and alternatives to retinal detachment repair were discussed including but are not limited to , loss of vision, loss of eye, pain, bleeding, infection, need for additional surgery, retinal detachment, accelerated cataract formation, glaucoma, need for corrective lenses, corneal decompensation, and cosmetic disfigurement. Surgeon's Narrative: Shamar Martinez was met in the preoperative holding area where the Right and Left eye was confirmed tylor the correct eye with both the patient and the consent form. The Right and Left eye was then marked and the patient was brought to the operating room where an official time out was performed. Under the care of the anesthesia team, light IV sedation was administered after which the ophthalmology team gave 0.75% bupivicaine as a block and general anesthesia was induced. The eye was then prepped and draped in the sterile ophthalmic fashion. 360-degree peritomy was made with 0.12 forceps and blunt Talib scissors. The moncada tenotomy scissors were used to dissect to bare sclera in the four oblique quadrants. The four rectus muscles werethen isolated and secured with silk ties. The scleral wall was carefully inspected and found to be free of any external pathology. The band was threaded under the muscles and the sleeve placed in the superonasal quadrant. The buckle was partially tightened to remove slack then 5-0 nylon sutures were passed in each quadrant in a horizontal mattress fashion to secture the band in place at the level of the vitreous base. The knots were rotated posteriorly. The infusion was verified to be running. The buckle was then tightened. A 25G valved trocar was placed 3.5 and 4.0 mm behind the limbus beveled fashion inferotemporally. The infusion was connected to the trocar, the position was verified, and then allowed to run. This procedure was done expeditiously to minimize the time the buckle was tightened and intraocular pressure elevated. Additional trocars were then placed in the superonasal and superotemporal quadrants. The light pipe and vitrector were introduced and the RESDivesquare viewing system used. The retina was noted to be detached for 360 degrees with a large horseshoe tear inferotemporally, a retinal defect inferonasally, and two superotemporal starfolds. Careful core vitrectomy was performed and a posterior vitreous detachment was present. This was verified with aspiration over the optic nerve after kenalog injection. Peripheral vitreous shavingwas performed with scleral depression for 360 degrees. A dionicio-dusted membrane scraper and max-clerical car checker forceps were used to peel the preretinal membrane from the 2 starfolds. The retina was noted to relax nicely following this maneuver. The break were marked with diathermy. The soft-tip was used to carefully drain the subretinal fluid through the most posterior break under fluid infusion and then under air. After the retina had flattened, endolaser was applied to surround the previously marked breaks and areas of starfold. The retina appeared to be flat and no additional breaks were noted with scleral depression. The superonasal cannula was removed and closed with 6-0 plain gut suture. 14% C3F8 and 20% SF6 was then infused to fill the eye. The other 2 cannulas were removed and the sclerotomies were sutured closed with 6-0 plain gut. The buckle was trimmed and subtenons marcaine was given. The sutures were cut from the rectus muscles. The conjunctiva was reapproximated and sutured in place with 6-0 plaingut. Subconjunctival ancef and clindamycin, solumedrol, and tobramycin were given and the eye was noted to be at a physiologic pressure. The speculum was removed and the eye patched closed after instillation of tobradex ointment. The patient was brought to the recovery room in good condition. The patient will follow-up as scheduled tomorrow with the surgical team. documented in this encounter Miscellaneous Notes Anesthesia Post-Eval - Nina Nicolas - 02/28/2017 1147 EDT Anesthesia Post op Note Shamar Becki Martinez [id number] Anesthesia received: General; Vital Signs: Temp: 36.3 ??C (97.3 ??F), Heart Rate: 90 BPM, BP: 117/70, Resp: 8, SpO2: 98 % Vital signs Stable: Yes Consciousness: Awake Patient's participation in evaluation:Able to participate Temperature Status: Normothermic Respiratory Status: Airway patent Supplemental O2: Room air Oxygen Saturation: Appropriate for condition Cardiovascular Status: Appropriate for condition Post-op Hydration: Adequate Nausea / Vomiting: None Pain Control: Adequate Current Pain Score: Numeric Pain Level (Scale 1-10): 0 Post-op Assessment: Tolerated procedure well, No evidence of recall, Patient satisfied with anesthesia Disposition: Home Complications: No apparent anesthetic complications Nina Nicolas 02/28/2017 11:47 documented in this encounter Plan of Treatment Not on filedocumented as of this encounter Procedures Procedure Name Priority Date/Time Associated Diagnosis Comme nts IMPLANT RECORD - SCANNED 03/10/2017 11:07 EDT IMPLANT RECORD - SCANNED 03/03/2017 8:23 EDT ECG REPORT - SCANNED 03/03/2017 8:23 EDT ECG REPORT - SCANNED 02/24/2017 8:39 EDT documented in this encounter Results IMPLANT RECORD - SCANNED (03/10/2017 11:07 EDT) Specimen (Source) Anatomical Collection Method Collection Time Re ceived Time Location / / Volume Laterality 03/10/2017 11:07 EDT Narrative This result has an attachment that is no t available. Scan 2 Crop Production Advisor PROCEDURE/MINOR SURGICAL ORD ERABLES IMPLANT RECORD - SCANNED (03/03/2017 8:23 EDT) Specimen (Source) Anatomical Collection Method Collection Time Re ceived Time Location / / Volume Laterality 03/03/2017 8:23 EDT Narrative This result has an attachment that is no t available. Scan 2 Crop Production Advisor PROCEDURE/MINOR SURGICAL ORD ERABLES ECG REPORT - SCANNED (03/03/2017 8:23 EDT) Specimen (Source) Anatomical Collection Method Collection Time Re ceived Time Location / / Volume Laterality 03/03/2017 8:23 EDT Narrative This result has an attachment that is no t available. Scan 2 Crop Production Advisor PROCEDURE/MINOR SURGICAL ORD ERABLES ECG REPORT - SCANNED (02/24/2017 8:39 EDT) Specimen (Source) Anatomical Collection Method Collection Time Re ceived Time Location / / Volume Laterality 02/24/2017 8:39 EDT Narrative This result has an attachment that is no t available. Scan 2 Crop Production Advisor PROCEDURE/MINOR SURGICAL ORD ERABLES documented in this encounter Visit Diagnoses Diagnosis Serous retinal detachment, left Traction detachment of left retina Traction detachment of retina documented in this encounter Administered Medications Inactive Administered Medications - up to 3 most recent administrations Medication Order MAR Action Action Date Dose Rate Site acetaminophen (TYLENOL) 500 mg tablet 1 dose, Starting on Tue02/28/17 at 1147, Until 02/02 at 1431 acetaminophen (TYLENOL) tablet 1,000 mg Given 02/28/2017 11:48 EDT 1,000 mg 1,000 mg, oral, NOW X1, 1 dose, On Tue02/28/17 at 1215, Routine, Recovery (only) atropine 0.1 mg/mL syringe 0.5 mg 0.5 mg, intravenous, PRN, Starting on Tue02/28/17 at 1 145, Until Tue02/28/17 at 1431, Symptomatic HR < 50, Routine, Recovery (only) cyclopentolate (CYCLOGYL) 1 % ophthalmic Given 02/28/2017 6:56 E DT 1 Drop solution 1 Drop 1 Drop, left eye, PRE-OP Q 5 MINUTES, 3 doses, Starting on Tue02/28/17 at 0622, Until Tue02/28/17 at 0656, Other, vitreoretinal surgery, Routine, Pre-Op DOS Rx Approved Given 02/28/2017 6:51 EDT 1 Drop Given 02/28/2017 6:43 EDT 1 Drop diphenhydrAMINE (BENADRYL) injection 12. 5 mg 12.5 mg, intravenous, PRN, 1 dose, Starting on 02/02 at 1145, Until Tue02/28/17 at 1431, nausea, Routine, Recovery (only) lactated ringers (LR) infusion New Bag 02/28/2017 6:30 EDT 30 mL/hr 30 mL/hr 30 mL/hr, intravenous, CONTINUOUS, Starting on Tue02/28/17 at 0645, Until Tue02/28/17 at 1431, Routine, Pre-Op DOS Rx Approved lactated ringers (LR) infusion at 75 mL/hr, intravenous, CONTINUOUS, St arting on Tue02/28/17 at 1215, Until Tue02/28/17 at 1431, Routine, Recovery (only) naloxone (NARCAN) injection 0.2 mg 0.2 mg, intravenous, PRN, Starting on Tue02/28/17 at 1 145, Until Tue02/28/17 at 1431, Opioid Reversal, Routine, Recovery (only) phenylephrine (MYDFRIN) 2.5 % ophthalmic Given 02/28/2017 6:55 E DT 1 Drop solution 1 Drop 1 Drop, left eye, PRE-OP Q 5 MINUTES, 3 doses, Starting on Tue02/28/17 at 0622, Until Tue02/28/17 at 0655, Irritation, vitreoretinal surgery, Routine, Pre-Op DOS Rx Approved Given 02/28/2017 6:50 EDT 1 Drop Given 02/28/2017 6:44 EDT 1 Drop tropicamide (MYDRIACYL) 1 % ophthalmic solution Given 02/28/2017 6:56 EDT 1 Drop 1 Drop 1 Drop, left eye, PRE-OP Q 5 MINUTES, 3 doses, Starting on Tue02/28/17 at 0622, Until Tue02/28/17 at 0656, vitreoretinal surgery, Routine, Pre-Op DOS Rx Approved Given 02/28/2017 6:50 EDT 1 Drop Given 02/28/2017 6:46 EDT 1 Drop documented in this encounter Historical Medications This list may reflect changes made after this encounter. Medication Sig Dispensed Refills Start Date End Date amLODIPine (NORVASC) 10 mg Take 5 mg by mouth 0 tabletIndications: daily. hypertension added in this encounter Active and Recently Administered Medications Times are shown in EDT. Scheduled Medication Order 02/26/2017 02/27/2017 02/28/2017 acetaminophen (TYLENOL) tablet 1,000 mg (COMPLETED) 1148 (Given - Provider: Rebecca Justice RN) 1,000 mg, oral, NOW X1, 1 dose, Tue02/28/17 at 1215, Routine Continuous Medication Order 02/26/2017 02/27/2017 02/28/2017 lactated ringers (LR) infusion 0 630 (New Bag - Provider: Deandra Will RN) at 30 mL/hr, 30 mL/hr, intravenous, CONT INUOUS, Starting Tue02/28/17 at 0645, Until Tue02/28/17 at 1431, Routine lactated ringers (LR) infusion 1 215 (Canceled Entry - Provider: Batch Job User Admin - Comment: Automatically canceled at discontinue of medication order) at 75 mL/hr, intravenous, CONTINUOUS, St arting 02/28/17 at 1215, Until Tue02/28/17 at 1431, Routine PRN Medication Order 02/26/2017 02/27/2017 02/28/2017 atropine 0.1 mg/mL syringe 0.5 mg 0.5 mg, intravenous, PRN, Starting Tue at 1145, Until Tue02/28/17 at 1431, Symptomatic HR < 50, Routine cyclopentolate (CYCLOGYL) 1 % ophthalmic solution 1 Drop (COMPLE SUNNY) 0643 (Given - Provider: Deandra Will, RN)0651 (Given - Provider: Deandra Will, RN)0656 (Given - Provider: Deandra Will, RN) 1 Drop, left eye, PRE-OP Q 5 MINUTES, 3 doses, Starting Tue02/28/17 at 0622, Until Tue02/28/17 at 0656, Other, vitreoretinal surgery, Routine diphenhydrAMINE (BENADRYL) injection 12.5 mg 12.5 mg, intravenous, PRN, 1 dose, Start ing Tue02/28/17 at 1145, Until Tue02/28/17 at 1431, nausea, Routine naloxone (NARCAN) injection 0.2 mg 0.2 mg, intravenous, PRN, Starting Tue at 1145, Until Tue02/28/17 at 1431, Opioid Reversal, Routine phenylephrine (MYDFRIN) 2.5 % ophthalmic solution 1 Drop (COMPLE SUNNY) 0644 (Given - Provider: Deandra Will, TIFFANI)0650 (Given - Provider: Deandra Will, TIFFANI)0655 (Given - Provider: Deandra Will, RN) 1 Drop, left eye, PRE-OP Q 5 MINUTES, 3 doses, Starting Tue02/28/17 at 0622, Until Tue02/28/17 at 0655, Irritation, vitreoretinal surgery, Routine tropicamide (MYDRIACYL) 1 % ophthalmic solution 1 Drop (COMPLETE D) 0646 (Given - Provider: Deandra Will, TIFFANI)0650 (Given - Provider: Deandra Will, RN)0656 (Given - Provider: Deandra Will, RN) 1 Drop, left eye, PRE-OP Q 5 MINUTES, 3 doses, Starting Tue02/28/17 at 0622, Until Tue02/28/17 at 0656, vitreoretinal surgery, Routine No Frequency Medication Order 02/26/2017 02/27/2017 02/28/2017 acetaminophen (TYLENOL) 500 mg tablet 1 dose, Starting 02/28/17 at 1147, Until Discontinued documented in this encounter Orders Medications Ordered That Might Not Have Count Last Ord ered Date First Ordered Date Been Administered acetaminophen (TYLENOL) 500 mg tablet 1 02/28/2017 atropine 0.1 mg/mL syringe 0.5 mg 1 02/28/2017 diphenhydrAMINE (BENADRYL) injection 12.5 1 2016 mg lactated ringers (LR) infusion 1 02/28/2017 naloxone (NARCAN) injection 0.2 mg 1 02/28/2017 Admission Count Last Ordered Date First Ordered Date STATUS: OUTPATIENT SURGICAL OP 1 02/28/2017 BED/SERVICES Transfer Count Last Ordered Date First Ordered Date NOTIFY PPS PACU PATIENT DISCHARGE 1 02/28/2017 NOTIFY PPS PATIENT ARRIVAL IN PACU 1 02/28/2017 Discharge Count Last Ordered Date First Ordered Date DISCHARGE PATIENT 1 02/28/2017 documented in this encounter Care Teams Press Catcher Relationship Specialty Start Date End Date Sadiq Wilcox MD PCP - General 02/18/17 documented as of this encounter
--- OUTSIDE RECORDS SUMMARY | 2022-05-31 13:42 | XMS_ITS | Encounter Summary ---
:1960 Author Organization [facility] Address [address] [place] [id number] Care Team Providers Name Role Phone Sadiq Wilcox MD Primary Care Provider Reason for Visit Reason Comments Post-OP Follow Up Pt her e f/u s/p Mac off RD Repair left eye on 02/28/2017. Vision left eye has improved some since last visit. No eye pain. No new or different fl ashes or floaters. Medication Management Eye drops: none Encounter Details Date Type Department Care Team Description 04/08/2017 Office Visit [facility] Tee Rios, Ophthalmology - [id number] [place] [address], [place] [address] (Wo rk) Social History Tobacco Use Types Packs/Day Years Used Date Smoking Tobacco: Never Smokeless Tobacco: Never Sex Assigned at Date Recorded Not on file documented as of this encounter Progress Notes Tee Rios MD - 04/08/2017 0845 EDT Chief Complaint Patient presents with ??? Post-OP Follow Up Pt her e f/u s/p Mac off RD Repair left eye on 02/28/2017. Vision left eye has improved some since last visit. No eye pain. No new or different flashes or floaters. ??? Medication Management Eye drops: none HPI Location: Left eye Pain: 0 - No pain Quality: Blurry Severity: Moderate Duration: Weeks Timing: Constant Lasts: Continuous Context: Modifying factors: S/p RD repair left eye on 02/28/2017 Associated Signs & Symptoms: Mac off RD left eye Visual Fluctuations: Floaters Attestation: The above HPI has been reviewed by the Attending PhysicianS/p RD repair left eye, vision is getting better, no eye pain, no flashes. Has floaters. Moderate, months, constant, continuous. Base Eye Exam Visual Acuity (Snellen - Linear) Right Left Dist cc 20/20 20/200 Dist ph cc 20/100 Tonometry (Applanation, 9:29) Right Left Pressure 17 17 Pupils Dark Light React APD Right 4 3 Brisk None Left 4 4 Possible Left APD Visual Lee Right Left Result Full Restrictions Partial inferior temporal, inferior nasal deficiencies Bubble left eye Extraocular Movement Right Left Result Full, Ortho Full, Ortho Neuro/Psych Oriented x3: Yes Mood/Affect: Normal Dilation Both eyes: 1.0% Mydriacyl, 2.5% Phenylephrine @ 9:41 Slit Lamp and Fundus Exam External Exam Right Left External Normal Slit Lamp Exam Right Left Lids/Lashes Normal Conjunctiva/Sclera White and quiet Cornea Clear Anterior Chamber Deep and quiet Iris Round and reactive Lens 1-2+ NSC, superior PSC Vitreous 20% bubble Fundus Exam Right Left Disc Normal Macula flat Vessels Normal Periphery SB 360, laser to tear IT Please refer to large retinal drawing. IMPRESSION: 1. 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 Tee Rios, have performed my own HPI and reviewed the tech's ROS. I have also reviewed the patient's past medical, family, social and surgical history, as well as the patient's medications, allergies, and problem list. I am scribing for Dr. Tee Rios MD while he is personally performing the service. 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 dorzolamide-timolol Place 1 Drop into Therapy completed 03/01/2017 04/08/2017 (COSOPT) 22.3-6.8 mg/mL the left eye 2 ophthalmic solution times daily. erythromycin (ROMYCIN) 5 Place 1 cm into Therapy completed 03/01/20 17 04/08/2017 mg/gram (0.5 %) ophthalmic the left eye 4 ointment times daily. prednisoLONE (PRED FORTE) Place 1 Drop into Therapy completed 03/0104/08/2017 1 % ophthalmic suspension the left eye 4 times daily. documented as of this encounter Historical Medications This list may reflect changes made after this encounter. Medication Sig Dispensed Refills Start Date End Date ibuprofen (MOTRIN) 200 mg Take 600 mg by mouth 0 tablet as needed for Pain. added in this encounter Eye Exam Visual Acuity (Snellen - Linear) Right eye Left eye Dist cc 20/20 20/200 Dist ph cc 20/100 Tonometry (Applanation, 9:29) Right eye Left eye Pressure 17 17 Pupils Dark Light React APD Right eye 4 3 Brisk None Left eye 4 4 Possible Left APD Visual Lee Right eye Left eye Full Restrictions Partial outer inferi or temporal, inferior nasal deficiencies Bubble left eye Extraocular Movement Right eye Left eye Full, Ortho Full, Ortho Neuro/Psych Oriented x3: Yes Mood/Affect: Normal Dilation Both eyes: 1.0% Mydriacyl, 2.5% Phenylep hrine @ 9:41 External Exam Right eye Left eye External Normal Slit Lamp Exam Right eye Left eye Lids/Lashes Normal Conjunctiva/Sclera White and quiet Cornea Clear Anterior Chamber Deep and quiet Iris Round and reactive Lens 1-2+ NSC, superior P SC Vitreous 20% bubble Fundus Exam Right eye Left eye Disc Normal Macula flat Vessels Normal Periphery SB 360, laser to tea r IT Care Teams Legal Financial Specialist Relationship Specialty Start Date End Date Sadiq Wilcox MD PCP - General 02/18/17 documented as of this encounter
--- OUTSIDE RECORDS SUMMARY | 2022-05-31 13:42 | XMS_ITS | Encounter Summary ---
:1960 Author Organization [facility] Address [address] [place] [address] Care Team Providers Name Role Phone Sdaiq Wilcox MD Primary Care Provider Reason for Visit Reason Onset Date Comments Medication Management 03/01/2017 Encounter Details Date Type Department Care Team Description 03/01/2017 Telephone [facility] Tee Rios, Medication Ophthalmology - [address] [address] [place], [place] [phone] (Wo rk) Social History Tobacco Use Types Packs/Day Years Used Date Smoking Tobacco: Never Smokeless Tobacco: Never Sex Assigned at Date Recorded Not on file documented as of this encounter Miscellaneous Notes Telephone Encounter - Jaquan Turner RN - 03/01/2017 1150 EDT Spoke to Delia Tijerina who stated it would take about [address] [place]. Spoke to Dr Barton who is ok signing of on the medications until this is approved. Will create another encounter with Dr Barton's name. Telephone Encounter - Nina Siddiqui - 03/01/2017 1137 EDT Pharmacy called, Patient is there to grain picker meds that were sent over today. [place] Medicaid does not recognize Dr Rios as a participating provider. Please follow up with pharmacy via the phone. documented in this encounter Plan of Treatment Not on filedocumented as of this encounter Visit Diagnoses Not on filedocumented in this encounter Care Teams Business Support Specialist Relationship Specialty Start Date End Date Sadiq Wilcox MD PCP - General 02/18/17 documented as of this encounter
--- OUTSIDE RECORDS SUMMARY | 2022-05-31 13:42 | XMS_ITS | Encounter Summary ---
:1960 Author Organization [facility] Address [address] [place] [address] Care Team Providers Name Role Phone Sadiq Wilcox MD Primary Care Provider Reason for Visit Reason Onset Date Comments Medications Refill 03/01/2017 Encounter Details Date Type Department Care Team Description 03/01/2017 Refill [facility] Dakota Melgar MD Medications Refill Ophthalmology - [address], [address], [address] [place], [place] [id number] [place] [address] [phone] (Wo rk) Social History Tobacco Use Types Packs/Day Years Used Date Smoking Tobacco: Never Smokeless Tobacco: Never Sex Assigned at Date Recorded Not on file documented as of this encounter Ordered Prescriptions Prescription Sig Dispensed Refills Start Date End Date ciprofloxacin HCl (CILOXAN) Place 1 Drop into 5 mL 2 0 03/02/2017 04/08/2017 0.3 % ophthalmic solution the left eye 4 times daily. prednisoLONE (PRED FORTE) 1 Place 1 Drop into 1 Bottle 2 0 03/01/2017 04/08/2017 % ophthalmic suspension the left eye 4 times daily. ofloxacin (OCUFLOX) 0.3 % Place 1 Drop into 1 Bottle 2 03/01/2017 ophthalmic solution the left eye 4 times daily. erythromycin (ROMYCIN) 5 Place 1 cm into 1 Tube 2 201604/08/2017 mg/gram (0.5 %) ophthalmic the left eye 4 ointment times daily. dorzolamide-timolol Place 1 Drop into 10 mL 2 7 04/08/2017 (COSOPT) 22.3-6.8 mg/mL the left eye 2 ophthalmic solution times daily. documented in this encounter Miscellaneous Notes Addendum Note - Jaquan Turner RN - 03/01/2017 1337 EDT Addended by: JAQUAN TURNER on: 03/01/2017 13:37 Modules accepted: Orders Telephone Encounter - Jaquan Turner RN - 03/01/2017 1332 EDT 1320: Pharmacy calling. Ofloxacin is not covered. Spoke to Dr Rios as he is primary MD for this patient. He stated to try Moxifloxacin first with same directions. If not he was ok with ok with Cipro. Pharmacy tried Moxifloxacin and it did not go through. Cipro did. They changed the RX for Cirpo left eye QID. Telephone Encounter - Jaquan Turner RN - 03/01/2017 1156 EDT 1305: Pharmacy called and made aware. See previous encounter. Dr Talia yancey signing of on medications for this patient. documented in this encounter Plan of Treatment Not on filedocumented as of this encounter Visit Diagnoses Not on filedocumented in this encounter Discontinued Medications Medication Sig Discontinue Reason Start Date End Date dorzolamide-timolol Place 1 Drop into Reorder 03/01/2017 (COSOPT) 22.3-6.8 mg/mL the left eye 2 ophthalmic solution times daily. erythromycin (ROMYCIN) 5 Place 1 cm into Reorder 03/01/2017 03/01/2017 mg/gram (0.5 %) ophthalmic the left eye 4 ointment times daily. ofloxacin (OCUFLOX) 0.3 % Place 1 Drop into Reorder 03/01/2017 03/01/2017 ophthalmic solution the left eye 4 times daily. prednisoLONE (PRED FORTE) Place 1 Drop into Reorder 03/01/2017 03/01/2017 1 % ophthalmic suspension the left eye 4 times daily. ofloxacin (OCUFLOX) 0.3 % Place 1 Drop into Availability 03/01/2017 03/01/2017 ophthalmic solution the left eye 4 times daily. documented as of this encounter Care Teams Mass Communications Instructor Relationship Specialty Start Date End Date Sadiq Wilcox MD PCP - General 02/18/17 documented as of this encounter
--- OUTSIDE RECORDS SUMMARY | 2022-05-31 13:42 | XMS_ITS | Encounter Summary ---
:1960 Author Organization [facility] Address [address] [place] [address] Care Team Providers Name Role Phone Sadiq Wilcox MD Primary Care Provider Reason for Visit Reason Comments Rash burning sensation to back o f both ears and forearm skin since summer time. feels like a sunburn but i dont have a sunburn. Encounter Details Date Type Department Care Team Description 07/14/2021 [facility] - Ruddy Melgar Dr y skin dermatitis [facility] Emergency PA-C (Primary Dx) Department [address] [place] [phone] (Wo rk) Social History Tobacco Use Types Packs/Day Years Used Date Smoking Tobacco: Never Smokeless Tobacco: Never Sex Assigned at Date Recorded Not on file COVID-19 Exposure Response Date Recorded In the last month, have you been in contact with No / Unsure 07/14/2021 10:51 EST someone who was confirmed or suspected to have Coronavirus / COVID-19? documented as of this encounter Last Filed Vital Signs Vital Sign Reading Time Taken Comments Blood Pressure 142/98 07/14/2021 1133 EST Pulse - - Temperature 36 ??C (96.8 ??F) 07/14/2021 1049 EST Respiratory Rate 16 07/14/2021 1133 EST Oxygen Saturation 97% 07/14/2021 1133 EST Inhaled Oxygen Concentration - - Weight - - Height - - Body Mass Index - - documented in this encounter Functional Status Functional Status Response [...] making decisions? documented as of this encounter Discharge Instructions Discharge InstructionsRuddy Melgar PA-C - 07/14/2021 11:29 EST You were seen in the emergency department with itching to your scalp and arms, you do appear to havesome dry skin behind your ears, apply moisturizer twice a day, you can also use Vaseline on the affected areas. It is important that you call your primary care provider to discuss today's visit, return to the emergency department if symptoms acutely worsen or change. AttachmentsThe following attachments cannot be sent through Care Everywhere.Dry Skin (Greek)documented in this encounter Medications at Time of Discharge Medication Sig Dispensed Refills Start Date End Date amLODIPine (NORVASC) 10 mg Take 5 mg by mouth 0 tabletIndications: daily. hypertension ibuprofen (MOTRIN) 200 mg Take 600 mg by mouth 0 tablet as needed for Pain. documented as of this encounter Discharge Disposition Disposition Code Departure Means Destination Home or Self Long Term documented in this encounter ED Notes Ruddy Melgar PA-C - 07/14/2021 1134 EST Emergency Department Visit Chief Complaint Rash (burning sensation to back of both ears and forearm skin since summer time. feels like a sunburn but i dont have a sunburn. ) Assessment and ED Course Final diagnoses: Dry skin dermatitis Disposition: Discharged HPI Shamar Martinez is a 60 y.o. male who presents today with Rash (burning sensation to back of both ears and forearm skin since summer time. feels like a sunburn but i dont have a sunburn. ) HPI Shamar is a 60-year-old male who presents to the emergency department with concern for itchy rash behind both ears, states he has had it since the summer, also feels the itching sensation on the back ofhis arms left greater than right. Has not seen his PCP for this. Has not tried any medications for this. Denies any visual rashes or lesions. Reports feeling otherwise well, denies chest pain, denies shortness of breath, states that he has been living in the area since 2019, PCP is in [facility], did see PCP last month. Data reviewed this visit: The patient's past medical, family and social history was reviewed and updated as needed. Allergies: Allergies Allergen Reactions ??? Lisinopril Cough ??? Tylenol [Acetaminophen] Stomach ache Review of Systems Review of Systems All other systems reviewed and are negative. - see HPI Physical Exam Vital Signs Temp: 36 ??C (96.8 ??F) Heart Rate: 89 BPM Resp: 16 SpO2: 97 % BP: (!) 142/98 BP Device: BP Machine BP Patient Position: Semi fowlers BP Cuff Location: Left arm O2 Device: None (Room air) There is no height or weight on file to calculate BMI. A medical screening exam was performed. Physical Exam Vitals and nursing note reviewed. Constitutional: General: He is not in acute distress. Appearance: He is well-developed and well-nourished. HENT: Nose: Nose normal. No nasal discharge. Mouth/Throat: Mouth: Mucous membranes are moist. Comments: Faint amount of erythema with some dry flaking skin behind bilateral ears,Eyes: Conjunctiva/sclera: Conjunctivae normal. Cardiovascular: Rate and Rhythm: Normal rate and regular rhythm. Pulmonary: Effort: Pulmonary effort is normal. No respiratory distress. Breath sounds: Normal breath sounds. Musculoskeletal: General: Normal range of motion. Cervical back: Normal range of motion and neck supple. Comments: No visible abnormalities to skin on arms, flex range of motion of the upper extremities Skin: General: Skin is warm and dry. Neurological: Mental Status: He is alert and oriented to person, place, and time. Cranial Nerves: No cranial nerve deficit. Psychiatric: Mood and Affect: Mood and affect normal. Procedures Procedures MDM 60-year-old male presents the emergency department with burning sensation behind bilateral ears since the summer, he appears to have some dry flaking skin, encouraged using moisturizer or Vaseline, encouraged close follow-up with PCP, does not appear to have any additional complaints. See discharge instructions for patient education/return precautions Kam Jain was available for supervision. 07/15/2021 22:47 Jazmin Bolden RN - 07/14/2021 1051 EST Fully vaccinated for covid 19 with booster documented in this encounter Plan of Treatment Not on filedocumented as of this encounter Procedures Procedure Name Priority Date/Time Associated Comments Diagnosis POCT GLUCOSE, MANUAL Routine 07/14/2021 11:07 Res ults for this ENTRY EST procedure are i n the results section. POCT GLUCOSE, Routine 07/14/2021 11:06 Results fo r this INTERFACED EST procedure are i n the results section. documented in this encounter Results (ABNORMAL) POCT GLUCOSE, MANUAL ENTRY (07/14/2021 11:07 EST) P athologist Signature Glucose, POC 125 (A) 70 - 100 mg/dL [facility] LAB POC COMMENT MANUAL (GLUCOSE) Tech ID Specimen (Source) Anatomical Collection Method Collection Time Re ceived Time Location / / Volume Laterality Blood CAPILLARY BLOOD / 07/14/2021 11:07 Unknown EST Ruddy Melgar PA-C POINT OF CARE TEST ORDERABLE S (ABNORMAL) POCT GLUCOSE, INTERFACED (07/14/2021 11:06 EST) Patholo gist Method Time Signature Glucose, POC 125 (H) 70 - 100 07/16/2021 [facility] mg/dL 2:17 EST [facility] LAB POC Test 07/16/2021 [facility] COMMENT Performed in 2:17 EST [facility] (GLUCOSE[facility] LAB Specimen Anatomical Collection Method Collection Time Receive d Time (Source) Location / / Volume Laterality Blood CAPILLARY BLOOD / 07/14/2021 11:06 2021 2:17 Unknown EST EST Ruddy Melgar PA-C POINT OF CARE TEST ORDERABLE S Performing Organization Address City/State/ZIP Code Phon e Number [facility] [address] [place] [address] documented in this encounter Visit Diagnoses Diagnosis Dry skin dermatitis - Primary Contact dermatitis and other eczema due to other specified agent documented in this encounter Care Teams Residency Coordinator Relationship Specialty Start Date End Date Sadiq Wilcox MD PCP - General 02/18/17 documented as of this encounter
--- OUTSIDE RECORDS SUMMARY | 2022-05-31 13:42 | XMS_ITS | Encounter Summary ---
:[address] [facility] Address [address] [place] [address] Care Team Providers Name Role Phone Sadiq Wilcox MD Primary Care Provider Reason for Visit Reason Comments Eye Problem S/p RD repair left eye Medication Management PF-QID left eye, Ocufolx-QID left eye- Cosopt-BID left eye E-mycin-was using BID but urrutia s only used daily last couple days Encounter Details Date Type Department Care Team Description 03/11/2017 Office Visit [facility] Tee Rios, Ophthalmology - [address] [facility] [place] [phone] (Wo rk) Social History Tobacco Use Types Packs/Day Years Used Date Smoking Tobacco: Never Smokeless Tobacco: Never Sex Assigned at Date Recorded Not on file documented as of this encounter Patient Instructions Patient InstructionsRandi Sawyer OTA - 03/11/2017 10:15 EDT Taper Prednisolone left eye One drop 3 times a day for 1 wk One drop 2 times a day for 1 wk One drop once daily for 1 wk Stop Stop Ocuflox and Cosopt documented in this encounter Progress Notes Tee Rios MD - 03/11/2017 1015 EDT Chief Complaint Patient presents with ??? Eye Problem S/p RD repair left eye ??? Medication Management PF-QID left eye, Ocufolx-QID left eye- Cosopt-BID left eye E-mycin-was using BID but has only used daily last couple days HPI Location: Left eye Pain: 0 - No pain Quality: Blurry Severity: Moderate Duration: Weeks Timing: Constant Lasts: Continuous Context: Vision has gotten better, no pain, has a floater in the left eye. No flashes. Left eye is itchy. Modifying factors: S/p RD repair left eye Associated Signs & Symptoms: PF-QID left eye, Ocufolx-QID left eye- Cosopt-BID left eye E-mycin-was using BID but has only used daily last couple days Visual Fluctuations: Floaters Attestation: Base Eye Exam Visual Acuity (Snellen - Linear) Right Left Dist cc 20/20 CF 1' Correction: Glasses Tonometry (Applanation, 11:19) Right Left Pressure 18 10 Pupils Pupils Right PERRL Left PERRL Neuro/Psych Oriented x3: Yes Mood/Affect: Normal Dilation Left eye: 1.0% Mydriacyl, 2.5% Phenylephrine @ 11:20 Slit Lamp and Fundus Exam Slit Lamp Exam Right Left Conjunctiva/Sclera ONESIMO Anterior Chamber Deep and quiet, rare cell Lens lens feathering Fundus Exam Right Left Periphery SB 360, inferior hole with laser Please refer to large retinal drawing. IMPRESSION: 1. Traction detachment of left retina PLAN: Stable s/p RD repair left eye Retina flat; IOP acceptable, no infection. Start PF taper 3 x a day for 1 wk, 2 x a day for 1 wk, 1 x a day for 1 wk- stop Stop Ocuflox and Cosopt Return in 3 wks sooner PRN I, Dr. Tee Rios, have performed my own HPI and reviewed the tech's ROS. I have also reviewed the patient's past medical, family, social and surgical history, as well as the patient's medications, allergies, and problem list. I am scribing for Dr. Tee Rios MD while he is personally performing the service. ORTIZ WISEMAN (Scribe) documented in this encounter Plan of Treatment Not on filedocumented as of this encounter Visit Diagnoses Diagnosis Traction detachment of left retina - [place] Traction detachment of retina documented in this encounter Eye Exam Visual Acuity (Snellen - Linear) Right eye Left eye Dist cc 20/20 CF 1' Correction: Glasses Tonometry (Applanation, 11:19) Right eye Left eye Pressure 18 10 Pupils Pupils Right eye PERRL Left eye PERRL Neuro/Psych Oriented x3: Yes Mood/Affect: Normal Dilation Left eye: 1.0% Mydriacyl, 2.5% Phenyleph rine @ 11:20 Slit Lamp Exam Right eye Left eye Conjunctiva/Sclera ONESIMO Anterior Chamber Deep and quiet, rare cell Lens lens feathering Fundus Exam Right eye Left eye Periphery SB 360, inferior hol e with laser; flat 360 Care Teams Event Staff Relationship Specialty Start Date End Date Sadiq Wilcox MD PCP - General 02/18/17 documented as of this encounter
--- OUTSIDE RECORDS SUMMARY | 2022-05-31 13:42 | XMS_ITS | Encounter Summary ---
:1960 Author Organization [facility] Address [address] [place] [address] Care Team Providers Name Role Phone Sadiq Wilcox MD Primary Care Provider Reason for Visit Reason Comments Eye Problem Hx of RD left eye s/p SB, La ser 02/28/17. Encounter Details Date Type Department Care Team Description 07/14/2018 Office Visit [facility] Tee Rios, Ophthalmology - [address] [address] [address], [place] [phone] (Wo rk) Social History Tobacco Use Types Packs/Day Years Used Date Smoking Tobacco: Never Smokeless Tobacco: Never Sex Assigned at Date Recorded Not on file documented as of this encounter Functional Status Functional Status Response Date of Assessment Because of a physical, mental, or emotional condition, No 12/16/2017 does this person have difficulty doing errands alone such as visiting a doctor's office or shopping? Cognitive Status Response Date of Assessment Because of a physical, mental, or emotional condition, No 12/16/2017 does this person have serious difficulty concentrating, remembering, or making decisions? documented as of this encounter Progress Notes Tee Rios MD - 07/14/2018 1415 EST Chief Complaint Patient presents with ??? Eye Problem Hx of RD left eye s/p SB, Laser 02/28/17. HPI Location: Left eye Pain: Quality: Blurry Severity: Moderate Duration: Months Timing: Constant Lasts: Continuous Context: Hx of RD left eye s/p SB, Laser 02/28/17. Modifying factors: s/p Cataract Sx left eye in [facility]. Associated Signs & Symptoms: VA much improved since Cataract Sx left eye. No new F and F. No pain. Visual Fluctuations: Attestation: Base Eye Exam Visual Acuity (Snellen - Linear) Right Left Dist sc 20/40 -1 Dist cc 20/20 20/70 -1 Dist ph cc 20/50 +2 Correction: Glasses Tonometry (Applanation, 14:36) Right Left Pressure 15 17 Pupils Pupils Dark React APD Right PERRL 4 Brisk - Left PERRL 4 Brisk - Dilation Both eyes: 1.0% Mydriacyl, 2.5% Phenylephrine @ 14:36 Slit Lamp and Fundus Exam Slit Lamp Exam Right Left Lids/Lashes Normal Normal Conjunctiva/Sclera White and quiet White and quiet Cornea Clear Clear Anterior Chamber Deep and quiet Deep and quiet Iris Round and reactive Round and reactive Lens 1+ Nuclear sclerosis Posterior chamber intraocular lens, s.p YAG Fundus Exam Right Left Disc drusen Normal C/D Ratio 0.2 Macula Normal Normal Vessels Normal Normal Periphery Normal SB 360, laser ST and IT, flat Please refer to large retinal drawing. IMAGING: OCT REPORT Indications: RD Findings: Right Eye Left Eye Normal minimal thickening Original test to be found in patients shadow chart IMPRESSION: 1. 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 Nuclear senile cataract of right eye 3. Macular pucker, left PLAN: Chroiretinal scarring left eye S/p RD repair Retina remains flat Vision MUCH improved following cataract extraction Pt doing well and happy RDprecautions No new holes breaks or tears No tx at this time Mild NSC right eye NVS Observe Minimal ERM left eye Observe Return in about 6 months (around 01/11/2019), or if symptoms worsen or fail to improve. I, Dr. Tee Rios, have performed my own HPI and reviewed the tech's ROS. I have also reviewed the patient's past medical, family, social and surgical history, as well as the patient's medications, allergies, and problem list. I am scribing for Dr. Tee Rios MD while he is personally performing the service. Penelope JADE (Scribe) documented in this encounter Plan of Treatment Not on filedocumented as of this encounter Visit Diagnoses Diagnosis Chorioretinal scars after surgery for de tachment, left eye - Primary Nuclear senile cataract of right eye Macular pucker, left documented in this encounter Eye Exam Visual Acuity (Snellen - Linear) Right eye Left eye Dist sc 20/40 -1 Dist cc 20/20 20/70 -1 Dist ph cc 20/50 +2 Correction: Glasses Tonometry (Applanation, 14:36) Right eye Left eye Pressure 15 17 Pupils Pupils Dark React APD Right eye PERRL 4 Brisk - Left eye PERRL 4 Brisk - Dilation Both eyes: 1.0% Mydriacyl, 2.5% Phenylep hrine @ 14:36 Slit Lamp Exam Right eye Left eye Lids/Lashes Normal Normal Conjunctiva/Sclera White and quiet White and quiet Cornea Clear Clear Anterior Chamber Deep and quiet Deep and quiet Iris Round and reactive Round and reactive Lens 1+ Nuclear sclerosis Posterior chamber i ntraocular lens, s.p YAG Fundus Exam Right eye Left eye Disc drusen Normal C/D Ratio 0.2 Macula Normal Normal Vessels Normal Normal Periphery Normal SB 360, laser ST and IT, flat Care Teams Rehabilitation Assistant Relationship Specialty Start Date End Date Sadiq Wilcox MD PCP - General 02/18/17 documented as of this encounter
--- OUTSIDE RECORDS SUMMARY | 2022-05-31 13:42 | XMS_ITS | Encounter Summary ---
:[address] [facility] Address [address] [place] [address] Care Team Providers Name Role Phone Unknown, Provider Primary Care Provider Encounter Details Date Type Department Care Team Description 10/21/2010 Results Only [facility] Germaine Segovia, DO [phone] [facility] [place], [place] [id number] (Wo rk) Social History Tobacco Use Types Packs/Day Years Used Date Smoking Tobacco: Never Assessed Sex Assigned at Date Recorded Not on file documented as of this encounter Plan of Treatment Not on filedocumented as of this encounter Procedures Procedure Name Priority Date/Time Associated Diagnosis Comme [facility] SURGICAL PATHOLOGY Routine 10/21/2010 0:00 EDT Re sults for this procedure are i n the results section. documented in this encounter Results SURGICAL PATHOLOGY (10/21/2010 0:00 EDT) Component Value Ref Test Analysis Performed At [facility] Method Time Signature Pathology SURGICAL PATHOLOGY REPORT ? GEORGE HER Report: Reports generated via electr 28msec interface contain original data; ? ALBINO MOORE however they are lacking the format of the original report. ? Caution should be taken when reading/interpreting unformatted reports. ? Name: ? MICHELLE, SHAMAR L ? Accession #: ? [id number] ? : ? 1960 (Age: 50) ??M ? Collec t Date: ? 10/21/2010 ? Location: ? [facility] ? R eceive Date: ? 10/22/2010 ? Provider: GERMAINE SEGOVIA DO ? Copy to: BRONWYN GAY MD ? Final Pathologic Diagnosis: ? Soft tissue of trunk and extremities, multiple masses, excision: ? - Angiolipoma. ??See comment . ? Comment: ? This case was reviewe d at the intradepartmental consultation conference. ?? (Dr. Flowers)/merry ? Document reviewed and electr onically signed by: ? SARA S ANNEMARIE MD ? Report ??Date: 10/23/2010 15 :10 ? By the signature above, the attending physician certifies that he/she has ? personally conducted a gross and/or microscopic examination of the described ? specimens and rendered or co nfirmed the above diagnosis. ? Specimen(s) Received: ? Multiple lipomas trun k and extremities ? Clinical History: ? Multiple lipomas trun k and extremities ? Gross Description: ? Received in formalin labelled Michelle, Shamar and multiple lipomas trunk ?? and extremities are six schneider unoriented portions of yellow adipose tissue that ?? range from 1.5 x 1.1 x 0.6 c m to 3.5 x 2.5 x 1.5 cm and have an aggregate weight of 35 grams. ??The majority of the pieces of tissue appear intact, with an ? overlying thin, transparent, smooth capsule; however, some of the fragments are focally slightly disrupted o n the outer surface. ??The tissues are all entirely ?? inked black. ??Sectioning re veals yellow, homogeneous cut surfaces without ? significant hemorrhage, with out necrosis, and without induration. ??A ? senior sales representative section from each piece of tissue is submitted as (A1) through ?? (A6). ??(Nelson Jha)/merry ? End of Report ? Specimen (Source) Anatomical Collection Method Collection Time Re ceived Time Location / / Volume Laterality 10/21/2010 10/22/2010 9:23 EDT Germaine Segovia DO PATHOLOGY ORDERABLES Performing Organization Address City/State/ZIP Code Phon e Number [facility] [address] [place] [address] [facility] [address] [place] [address] documented in this encounter Visit Diagnoses Not on filedocumented in this encounter Care Teams Jig And Fixture Maker Relationship Specialty Start Date End Date Unknown, Provider, PCP - General 10/22/10 10/25/10 documented as of this encounter
--- OUTSIDE RECORDS SUMMARY | 2022-05-31 13:42 | XMS_ITS | Encounter Summary ---
:1960 Author Organization [facility] Address [address] [place] [address] Care Team Providers Name Role Phone Eleonora Adam GUCCI Primary Care Provider Reason for Visit Reason Comments Eye Problem mac-off RD left eye. Startin g losing vision on 12/23/16. Tried to make appt with eye doctor but co uldn't get in. Encounter Details Date Type Department Care Team Description 02/16/2017 Office Visit [facility] Tee Rios, Ophthalmology - [address] [address] [address], [place] [address] (Wo rk) Social History Tobacco Use Types Packs/Day Years Used Date Smoking Tobacco: Never Sex Assigned at Date Recorded Not on file documented as of this encounter Discharge Disposition Disposition Code Departure Means Destination Auto Discharge documented in this encounter Progress Notes Tee Rios MD - 02/16/2017 1500 EDT Chief Complaint Patient presents with ??? [...] arrived with an exam note from another transitional care manager recommending repair within 7 days. I am recommending scleral-buckle, pars plana vitrectomy membrane peeling, possible gas or oil in theleft eye. We discussed the risks, benefits and alternatives. All questions were answered. He elects to proceed. I did offer him a stat medical evaluation at the [facility] urgent care this evening and then posting as [...] NITA CH (Scribe) documented in this encounter Plan of Treatment Not on filedocumented as of this encounter Visit Diagnoses Diagnosis Retinal detachment, tractional, left - P rimary Age-related nuclear cataract of both eye s Senile nuclear sclerosis documented in this encounter Eye Exam Visual Acuity (Snellen - Linear) Right eye Left eye Dist cc 20/25 -2 20/800 Correction: Glasses Tonometry (Applanation, 16:00) Right eye Left eye Pressure 14 14 Pupils APD Right eye - Left eye + Neuro/Psych Oriented x3: Yes Mood/Affect: Normal Dilation Both eyes: 1.0% Mydriacyl, 2.5% Phenylep hrine @ 16:00 External Exam Right eye Left eye External Normal Normal Slit Lamp Exam Right eye Left eye Lids/Lashes Normal Normal Conjunctiva/Sclera White and quiet White and quiet Cornea Clear Clear Anterior Chamber Deep and quiet Cell: Occasional Iris Round and reactive Round and reactive Lens Trace Nuclear sclerosis Trace Nuclear sc lerosis Vitreous Normal pigment in vitreous Fundus Exam Right eye Left eye Disc Tilted disc Normal C/D Ratio 0.1 Macula Normal detached Vessels Normal Periphery Cobblestones star fold at superot emp arcade; HST with rolled edge at 6; retina detached exce pt between 10-11 Care Teams Expense Clerk Relationship Specialty Start Date End Date Eleonora Adam NP PCP - General 08/09/11 02/17/[address] [place] [phone] documented as of this encounter
--- OUTSIDE RECORDS SUMMARY | 2022-05-31 13:42 | XMS_ITS | Clinical Summary ---
:[address] [facility] Address [address] [place] [address] Care Team Providers Name Role Phone Sadiq Wilcox MD Primary Care Provider Allergies Active Allergy Reactions Severity Noted Date Comments Lisinopril Cough 07/14/2021 Acetaminophen 02/22/2017 Stomach ache Medications Medication Sig Dispensed Refills Start Date End Date Status amLODIPine (NORVASC) 10 Take 5 mg by 0 Active mg tabletIndications: mouth daily. hypertension ibuprofen (MOTRIN) 200 Take 600 mg by 0 Active mg tablet mouth as needed for Pain. Active Problems Problem Noted Date Traction detachment of left retina 02/28/2017 Cataract of both eyes 02/16/2017 Surgical History Surgery Date Site/Laterality Comments RETINAL DETACHMENT SURGERY 02/28/2017 Left Nahum Rios MD Medical History Medical History Date Comments Hypertension Family History Relation Status Comments Father No RD Mother no RD Social History Tobacco Use Types Packs/Day Years Used Date Smoking Tobacco: Never Smokeless Tobacco: Never Sex Assigned at Date Recorded Not on file Obstetrics History Last Filed Vital Signs Vital Sign Reading Time Taken Comments Blood Pressure 142/98 07/14/2021 1133 EST Pulse - - Temperature 36 ??C (96.8 ??F) 07/14/2021 1049 EST Respiratory Rate 16 07/14/2021 1133 EST Oxygen Saturation 97% 07/14/2021 1133 EST Inhaled Oxygen Concentration - - Weight 158.8 kg (350 lb) 02/22/2017 1022 EDT Height 177.8 cm (5' 10) 02/22/2017 1022 EDT Body Mass Index 50.22 02/22/2017 1022 EDT Plan of Treatment Health Maintenance Due Date Last Done Comments COVID-19 Vaccine (#1) 02/29/1961 Hepatitis C Screen Completed 07/21/2021 Insurance Payer Benefit Plan Subscriber ID Effective Phone Address Typ e / Group Dates MEDICAID ACO MEDICAID ACO [id number] 2019-Pres [phone] [address] [place] [address], [facility] [place] [address] Shamar Martinez L Personal/Family Self 1960 [address] [place] [address] Shamar Martinez L Personal/Family Self 1960 [address] [place] [address] Care Teams Linoleum Tile Layer Relationship Specialty Start Date End Date Sadiq Wilcox MD PCP - General 02/18/17
--- OUTSIDE RECORDS SUMMARY | 2022-05-31 13:42 | XMS_ITS | Encounter Summary ---
:1960 Author Organization [facility] Address [address] [place] [address] Care Team Providers Name Role Phone Sadiq Wilcox MD Primary Care Provider Reason for Visit Reason Comments Eye Problem S/P RD repair left eye, chor ioretinal scar left eye Encounter Details Date Type Department Care Team Description 12/16/2017 Office Visit [facility] Tee Rios, Ophthalmology - [address] [address] [address], [place] [address] (Wo rk) Social History Tobacco [...] encounter Progress Notes Tee Rios MD - 12/16/2017 0800 EDT Chief Complaint Patient presents with ??? Eye Problem S/P RD repair left eye, chorioretinal scar left eye HPI: Feels vision is stable since last visit. Poor in left eye. Base Eye Exam Visual Acuity (Snellen - Linear) Right Left Dist cc 20/20 20/400 Dist ph cc 20/80-2 Correction: Glasses Tonometry (Applanation, 8:24) Right Left Pressure 18 17 Pupils Pupils Light APD Right PERRL 3 None Left PERRL 3 None Dilation Both eyes: 1.0% Mydriacyl, 2.5% Phenylephrine @ 8:24 Slit Lamp and Fundus Exam Slit Lamp Exam Right Left Lids/Lashes Normal Normal Conjunctiva/Sclera White and quiet White and quiet Cornea Clear Clear Anterior Chamber Deep and quiet Deep and quiet Iris Round and reactive Round and reactive Lens 1+ Nuclear sclerosis 3-4+ Nuclear sclerosis, Posterior subcapsular cataract Fundus Exam Right Left Disc drusen Normal C/D Ratio 0.2 Macula Normal Normal Vessels Normal Normal Periphery Normal SB 360, laser ST and IT, flat Please refer to large retinal drawing. IMAGING: OCT REPORT Indications: Epiretinal Membrane Findings: Right Eye Left Eye Normal min'l ERM Original test to be found in patients shadow chart IMPRESSION: 1. Macular pucker, left 2. 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 Nuclear senile cataract of both eyes PLAN: S/p RD repair left eye Retina flat Well Observe Cataract left>>right eye Recommend eval with Dr. Hubbard Will set up ERM left eye Min'l, NVS Observe Return in 6 months sooner PRN I, Dr. Tee Rios, have performed my own HPI and reviewed the tech's ROS. I have also reviewed the patient's past medical, family, social and surgical history, as well as the patient's medications, allergies, and problem list. I am scribing for Dr. Tee Rios MD while he is personally performing the service. ORTIZ WISEMAN (Scribe) documented in this encounter Consult Notes Tee Rios MD - 12/16/2017 0000 EDT [facility] OPHTH[facility] CONSULTATION - 12/16/2017 Junior Hubbard MD [facility] [address], [address] [place] [address] Hubbard: This letter is to serve as an introduction to Mr Shamar Martinez. He is a 57-year-old man who had successful reattachment retinal surgery in February of last year and now has a post-vitrectomy nuclear sclerotic cataract in his left eye. He asked to be referred to a cataract surgeon and I recommended he see you for evaluation. For your reference on physical examination, the visual acuity is 20/20 in the right eye, 20/400 in the left eye, improving with pinhole to 20/80. Intraocular pressure was 18 in the right eye and 17 in the left. Anterior segment examination revealed early nuclear sclerotic cataract in the right eye ann marie 3 to 4+ nuclear sclerotic cataract with moderate posterior subcapsular component in the left eye. Dilated funduscopic examination of the right eye revealed mild drusen. Dilated funduscopic examination of the left eye revealed flat retina with a 360 degree encircling scleral buckle and there was laser in the retinal periphery. OCT imaging confirmed a very minimal epiretinal membrane in his left eye. Again, Mr Martinez now has a visually significant cataract in his left eye following successful vitrectomy and scleral buckle for a macula-off retinal detachment in February 2017. He understands that his visual prognosis is guarded, but he is hoping to try to see a bit better than he does now. I am encouraged that the pinhole filter does seem to improve his vision somewhat. Thank you very much for allowing me to participate in the care of this very pleasant gentleman. Sincerely, Tee Rios MD 11 52 AM - Tee Rios MD ln Dictation ID: [id number] cc: Junior Hubbard MD, [facility] [address], [address], [place] [address] documented in this encounter Plan of Treatment Scheduled Orders Name Type Priority Associated Diagnoses Order S chedule OCT (OPHTHALMIC Ophthalmology Routine Macular pucker, left Ord ered: 12/16/2017 DIGITAL IMAGING, POSTERIOR SEGMENT) documented as of this encounter Visit Diagnoses Diagnosis Macular pucker, left - Primary Chorioretinal scars after surgery for de tachment, left eye Nuclear senile cataract of both eyes documented in this encounter Eye Exam Visual Acuity (Snellen - Linear) Right eye Left eye Dist cc 20/20 20/400 Dist ph cc 20/80-2 Correction: Glasses Tonometry (Applanation, 8:24) Right eye Left eye Pressure 18 17 Pupils Pupils Light APD Right eye PERRL 3 None Left eye PERRL 3 None Dilation Both eyes: 1.0% Mydriacyl, 2.5% Phenylep hrine @ 8:24 Slit Lamp Exam Right eye Left eye Lids/Lashes Normal Normal Conjunctiva/Sclera White and quiet White and quiet Cornea Clear Clear Anterior Chamber Deep and quiet Deep and quiet Iris Round and reactive Round and reactive Lens 1+ Nuclear sclerosis 3-4+ Nuclear sclero sis, Posterior subcapsular cataract Fundus Exam Right eye Left eye Disc drusen Normal C/D Ratio 0.2 Macula Normal Normal Vessels Normal Normal Periphery Normal SB 360, laser ST and IT, flat Care Teams Garment Presser Relationship Specialty Start Date End Date Sadiq Wilcox MD PCP - General 02/18/17 documented as of this encounter
--- OUTSIDE RECORDS SUMMARY | 2022-05-31 13:42 | XMS_ITS | Encounter Summary ---
:1960 Author Organization [facility] Address [address] [place] [id number] Care Team Providers Name Role Phone Sadiq Wilcox MD Primary Care Provider Reason for Visit Reason Comments Eye Problem s/p RD repair left eye -SB, PPVX, MP, Gas C3F8, laser 02/28/17 Encounter Details Date Type Department Care Team Description 06/10/2017 Office Visit [facility] Tee Rios, Ophthalmology - [address] [address] [address], [place] [address] (Wo rk) Social History Tobacco Use Types Packs/Day Years Used Date Smoking Tobacco: Never Smokeless Tobacco: Never Sex Assigned at Date Recorded Not on file documented as of this encounter Progress Notes Tee Rios MD - 06/10/2017 0815 EST Chief Complaint Patient presents with ??? Eye Problem s/p RD repair left eye -SB, PPVX, MP, Gas C3F8, laser 02/28/17 HPI Location: Left eye Pain: 0 - No pain Quality: Blurry Severity: Severe Duration: Months Timing: Constant Lasts: Continuous Context: Gas bubble gone left eye. VA is ok - still very blurry left eye Modifying factors: no flashes or floaters Associated Signs & Symptoms: right eye VA stable. both eyes have discharge - worse when home - indicates its thicker than tears but clear Visual Fluctuations: None Attestation: Pt states that vision is worse in the left eye than in the right eye but has improved some. No eye pain but eyes get teary. No new flashes or floaters. S/p RD repair left eye. Moderate, months, constant, continuous. Base Eye Exam Visual Acuity (Snellen - Linear) Right Left Dist cc 20/20 -1 20/300 Tonometry (Applanation, 8:34) Right Left Pressure 18 15 Neuro/Psych Oriented x3: Yes Mood/Affect: Normal Dilation Both eyes: 1.0% Mydriacyl, 2.5% Phenylephrine @ 8:34 Slit Lamp and Fundus Exam External Exam Right Left External Normal Slit Lamp Exam Right Left Lids/Lashes Normal Conjunctiva/Sclera White and quiet Cornea Clear Anterior Chamber Deep and quiet Iris Round and reactive Lens 2+ Nuclear sclerosis, Posterior subcapsular cataract Fundus Exam Right Left Disc Normal Macula flat Vessels Normal Periphery buckle 360, laser superior, @7, laser surrounding HST IT Please refer to large retinal drawing. IMPRESSION: 1. Chorioretinal scar of left eye after surgery for detachment 2. Nuclear sclerosis of left eye PLAN: S/p RD repair left eye Retina flat 360 with buckle No new holes or tears Stable, reassure patient Off all gtts Mod NSC left eye Pt will most likely need cataract surgery within a year Will try to get this arranged [facility], where patient lives Check on cataract at next retina visit in 6 months Follow up 6 months or sooner PRN I, Dr. Tee Rios, [...] of this encounter Visit Diagnoses Diagnosis Chorioretinal scar of left eye after alvaro sisi for detachment - Primary Chorioretinal scar, unspecified Nuclear sclerosis of left eye documented in this encounter Eye Exam Visual Acuity (Snellen - Linear) Right eye Left eye Dist cc 20/20 -1 20/300 Tonometry (Applanation, 8:34) Right eye Left eye Pressure 18 15 Neuro/Psych Oriented x3: Yes Mood/Affect: Normal Dilation Both eyes: 1.0% Mydriacyl, 2.5% Phenylep hrine @ 8:34 External Exam Right eye Left eye External Normal Slit Lamp Exam Right eye Left eye Lids/Lashes Normal Conjunctiva/Sclera White and quiet Cornea Clear Anterior Chamber Deep and quiet Iris Round and reactive Lens 2+ Nuclear sclerosis , Posterior subcapsular cataract Vitreous clear Fundus Exam Right eye Left eye Disc Normal Macula flat Vessels Normal Periphery buckle 360, laser ty perior, @7, laser surrounding HST IT Care Teams Industrial Cook Relationship Specialty Start Date End Date Sadiq Wilcox MD PCP - General 02/18/17 documented as of this encounter
--- OUTSIDE RECORDS SUMMARY | 2022-05-31 13:42 | XMS_ITS | Encounter Summary ---
:[address] [facility] Address [address] [place] [address] Care Team Providers Name Role Phone Sadiq Wilcox MD Primary Care Provider Reason for Visit Reason Comments Eye Problem 1 day post op- SB, PPVX, MP, Gas C3F8, laser left eye Encounter Details Date Type Department Care Team Description 03/01/2017 Office Visit [facility], Ophthalmology - [address] [address] [address], [place] [address] (Wo rk) Social History Tobacco Use Types Packs/Day Years Used Date Smoking Tobacco: Never Smokeless Tobacco: Never Sex Assigned at Date Recorded Not on file documented as of this encounter Patient Instructions Patient InstructionsRandi Sawyer OTA - 03/01/2017 8:00 EDT POST-OPERATIVE INSTRUCTIONS IN BRIEF You may wear an eye patch over your eye. You may wear your eyeglasses during the day. You should wear the plastic eye shield over your eye while sleeping for 7 days. Avoid bending, stooping, lifting objects over 15 pounds, or any strenuous activity for one week. Avoid getting water in the eye for one week. Take Tylenol or gently apply ice compresses to the eye to relieve mild discomfort. No tub bathing, swimming or hot tubbing for 1 month. You may shower, but try to avoid getting water directly in the eye. The following position is required after surgery and should be maintained 45 minutes out of each hour: Face down positioning during the day Position on right side during the night * It is common to experience some discomfort immediately after the surgery and for several days afterward. This is primarily related to swelling on the outside of the eye and around the eyelids. A scratchy feeling or occasional sharp pain is normal. * Ice compresses gently placed on the swollen areas (ice placed inside a resealable plastic bag works well) reduce the aching and soreness. Tylenol E.S. is also helpful for minor aching. * If you have a deep ache or throbbing pain that does not respond to Tylenol or other oewz-[id number] pain medication, please call Dr Rios at [phone]. * Redness is common and gradually diminishes over time. Some patients may notice a patch of blood onthe outside of the eye. This is similar to bruising on the skin and slowly resolves on its own. * Visual recovery varies with different types of surgery and the preop problem and may take several weeks to months to occur. If, however, you should experience a sudden loss of vision postop call Talia Martinez or Dr. Kunz immediately at [phone]. You may begin using drops after the patch has been removed. Please wait five minutes between different drops given at the same time. Your drops are listed below: 1. Prednisolone one drop in the left eye(s), 4 times per day. 2. Ocuflox one drop in the left eye(s), 4 times per day. 3. Dorzolamide-timolol one drop in the left eye(s), 2 times per day. 4. Erythromycin one drop in the left eye(s), 4 times per day or as needed for discomfort Bring all drops with you for each follow-up appointment. If you have any questions or concerns you may call Dr. Gabriel Villagran or Dr. Kunz at [phone] and they will be happy to assist you. documented in this encounter Ordered Prescriptions Prescription Sig Dispensed Refills Start Date End Date erythromycin (ROMYCIN) 5 Place 1 cm into the 1 Tube 2 03/01/2017 mg/gram (0.5 %) ophthalmic left eye 4 times ointment daily. dorzolamide-timolol Place 1 Drop into 10 mL 2 7 03/01/2017 (COSOPT) 22.3-6.8 mg/mL the left eye 2 ophthalmic solution times daily. prednisoLONE (PRED FORTE) Place 1 Drop into 1 Bottle 2 03/01/2017 1 % ophthalmic suspension the left eye 4 times daily. ofloxacin (OCUFLOX) 0.3 % Place 1 Drop into 1 Bottle 2 03/01/2017 ophthalmic solution the left eye 4 times daily. documented in this encounter Progress Notes Tee Rios MD - 03/01/2017 0800 EDT Chief Complaint Patient presents with ??? Eye Problem 1 day post op- SB, PPVX, MP, Gas C3F8, laser left eye HPI Location: Left eye Pain: 0 - No pain Quality: Blurry (FBS ) Severity: Severe Duration: Hours Timing: Constant Lasts: Continuous Context: left eye feels ok Modifying factors: Associated Signs & Symptoms: Visual Fluctuations: Attestation: Base Eye Exam Visual Acuity (Snellen - Linear) Right Left Dist sc HM with projection Tonometry (Tonopen, 8:20) Right Left Pressure 35 Tonometry #2 (Tonopen, 8:20) Right Left Pressure 36 Dilation Left eye: 1.0% Mydriacyl, 2.5% Phenylephrine @ 8:20 Slit Lamp and Fundus Exam Slit Lamp Exam Right Left Lids/Lashes Normal Conjunctiva/Sclera sub conj heme Cornea Clear Anterior Chamber Deep and quiet- no hypopeon Iris Round and reactive Lens mild lens feathering Vitreous 80% gas bubble Fundus Exam Right Left Macula Normal Vessels Normal Periphery SB 360, laser to HST @ 3,5,8, laser @2 , retina flat Please refer to large retinal drawing. IMPRESSION: 1. Traction detachment of left retina PLAN: Stable s/p RD repair left eye yesterday SB, PPVX, MP, Gas, Laser Retina flat; 80% gas Position face down during day Position on right side at night Drops: PF -/4, Ocuflox -/4, Dorzolamide-Timolol -/2 and Erythromycin -/4 or PRN for discomfort; sentto patients preferred pharmacy. Return in 1 wk sooner PRN I, Dr. Tee Rios, have [...] Linear) Right eye Left eye Dist sc HM with projection Tonometry #1 (Tonopen, 8:20) Right eye Left eye Pressure 35 Tonometry #2 (Tonopen, 8:20) Right eye Left eye Pressure 36 Dilation Left eye: 1.0% Mydriacyl, 2.5% Phenyleph rine @ 8:20 Slit Lamp Exam Right eye Left eye Lids/Lashes swelling Conjunctiva/Sclera sub conj heme Cornea Clear Anterior Chamber Deep and quiet- no h ypopyon Iris Normal Lens mild lens feathering Vitreous 80% gas bubble Fundus Exam Right eye Left eye Disc flat Macula Normal Vessels Normal Periphery SB 360, laser to HST @ 3,5,8, laser @2 , retina flat Care Teams Customer Care Specialist Relationship Specialty Start Date End Date Sadiq Wilcox MD PCP - General 02/18/17 documented as of this encounter
[2022-05-31 15:11] LABS: Abs Immature Grans 0.06 10^3/uL (0.0-0.06); Absolute Monocyte Count 1.16 10^3/uL (0.1-0.8); Absolute Neutrophil Count 8.67 10^3/uL (1.2-6.7); Basophils % 0.5; Eosinophils % 1.6; HGB 14.5 g/dL (13.5-17.5); Immature Grans % 0.5; MCH 29.8 pg (27.0-33.0); MCV 90 fL (80-95); MPV 10.1 fL (8.0-11.0); Neutrophils % 67.4; Platelet Count 313 10^3/uL (130-400); RBC 4.87 10^6/uL (4.36-5.78); RDW 12.8 % (11.8-14.1); RDW-SD 42.2 fL; WBC 12.86 10^3/uL (4.4-10.8)
[2022-05-31 15:14] LABS: Absolute Basophil Count 0.06 10^3/uL (0.0-0.2); Absolute Eosinophil Count 0.21 10^3/uL (0.0-0.7)
[2022-05-31 15:18] LABS: Mono Screening Negative (Negative)
[2022-05-31 15:38] LABS: Anion Gap 9.3 mmol/L (3-11); BUN 18 mg/dL (7-18); CO2 28.7 mmol/L (21.0-32.0); CREATININE 1.1 mg/dL (0.70-1.30); Calcium 9.6 mg/dL (8.5-10.1); Calculated LDL 92 mg/dL (<100); Chloride 100 mmol/L (98-107); Cholesterol 182 mg/dL (<200); Glucose 90 mg/dL (74-106); HDL Cholesterol 49 mg/dL (40-60); Potassium 4.7 mmol/L (3.5-5.1); Sodium 138 mmol/L (136-145); Triglyceride 209 mg/dL (<150)
== END 2022-05-31 13:41 | disposition home or self-care (01) ==
LOC: NCHCN 13:40
PROVIDERS: PCP Family Medicine; Visit Provider Family Medicine
DX: I10 Essential (primary) hypertension (principal); J02.9 Acute pharyngitis, unspecified; E78.5 Hyperlipidemia, unspecified
CPT/HCPCS: 80048; 80061; 85025; 86308

== ENCOUNTER 2023-04-20 11:08 | Outpatient (REF) | payer MEDICAID, SELFPAY ==
[2023-04-20 15:31] LABS: Anion Gap 10.7 mmol/L (3-11); BUN 26 mg/dL (7-18); CO2 26.3 mmol/L (21.0-32.0); CREATININE 1.1 mg/dL (0.70-1.30); Calcium 10.3 mg/dL (8.5-10.1); Chloride 101 mmol/L (98-107); Estimated GFR 75.43 (mL/min/1.73m2); Glucose 117 mg/dL (74-106); Potassium 4.7 mmol/L (3.5-5.1); Sodium 138 mmol/L (136-145)
== END 2023-04-20 11:09 | disposition home or self-care (01) ==
LOC: NCHCN 11:08
PROVIDERS: PCP Family Medicine; Visit Provider Family Medicine
DX: E11.9 Type 2 diabetes mellitus without complications (principal); I10 Essential (primary) hypertension
CPT/HCPCS: 80048

== ENCOUNTER 2023-08-16 13:09 | Outpatient (REF) | payer MEDICAID, SELFPAY ==
[2023-08-16 15:53] LABS: Anion Gap 12.5 mmol/L (3-11); BUN 29 mg/dL (7-18); CO2 24.5 mmol/L (21.0-32.0); CREATININE 1.3 mg/dL (0.70-1.30); Calcium 10.3 mg/dL (8.5-10.1); Chloride 102 mmol/L (98-107); Estimated GFR 61.73 (mL/min/1.73m2); Glucose 142 mg/dL (74-106); Potassium 5.2 mmol/L (3.5-5.1); Sodium 139 mmol/L (136-145)
[2023-08-17 09:32] LABS: HIV-1/2 Ag & Ab Screen Negative (Negative)
== END 2023-08-16 13:10 | disposition home or self-care (01) ==
LOC: NCHCN 13:09
PROVIDERS: PCP Family Medicine; Visit Provider Family Medicine
DX: I10 Essential (primary) hypertension (principal); E11.9 Type 2 diabetes mellitus without complications; Z11.4 Encounter for screening for human immunodeficiency virus [HIV]
CPT/HCPCS: 80048; 87389; 83036